=== PATIENT | female | born 1995 | race Caucasian/White ===

== ENCOUNTER 2017-12-28 15:00 | Inpatient (IN) | payer OTHER ==
[2017-12-28] MEDS ORDERED: Misoprostol 100 MCG Tab VAG PRN (16:36)
[2017-12-28] MEDS ORDERED: Sodium Chloride 0.9% 10 ML Syringe FLUSH PRN (16:36)
[2017-12-28] MEDS ORDERED: Ondansetron 4 MG/2 ML SDV IVPUSH PRN (16:36)
[2017-12-28] MEDS ORDERED: Nalbuphine 20 MG/1 ML Amp IVPUSH PRN (16:36)
[2017-12-28] MEDS ORDERED: Oxytocin/Lactated Ringers 10 UNIT/1,000 ML BAG IV SCH ×2 (16:45)
[2017-12-28] MEDS: Lactated Ringers 1,000 ML IV SCH ×3 (17:54→23:40)
--- NOTE | 2017-12-28 20:05 | PCM.LDHP ---
L&D History of Present Illness - General Date of Service: 12/28/17 Admit Problem/Dx: Patient Status Order with Admit Dx/Problem 12/28/17 15:12 Patient Status [ADT] Routine 12/28/17 17:22 Patient Status [ADT] Routine Admission Diagnosis/Problem Admission Diagnosis/Problem Source of Information: Patient History Limitations: Reports: No Limitations - History of Present Illness Introduction:: Patient is a 22 y/o at 38 0/7 wks who presents to L&D after clinic appointment showed 2 mild range BP's. Doing well. Denies headaches, vision changes, RUQ pain. 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 Para: 0 Psychiatric History: Reports: Anxiety, Depression - Past Surgical History HEENT Surgical History: Reports: Oral Surgery Social & Family History - Family History Family Medical History: Noncontributory - Tobacco Use Smoking Status *Q: Never Smoker Second Hand Smoke Exposure: No - Caffeine Use Caffeine Use: Reports: Coffee Other Caffeine Use: 1 every other day - Alcohol Use Alcohol Use History: No - Recreational Drug Use Recreational Drug Use: No H&P Review of Systems - Review of Systems: Review Of Systems: See Below General: Reports: No Symptoms Pulmonary: Reports: No Symptoms Cardiovascular: Reports: No Symptoms Gastrointestinal: Reports: No Symptoms Genitourinary: Reports: No Symptoms Musculoskeletal: Reports: No Symptoms Psychiatric: Reports: No Symptoms Neurological: Reports: No Symptoms L&D Exam - Exam Exam: See Below - Vital Signs Vital Signs: Last Vital Signs Temp 36.8 C 12/28/17 15:12 Pulse 101 H 12/28/17 16:31 Resp 18 12/28/17 15:12 BP 151/93 H 12/28/17 16:31 Pulse Ox 99 12/28/17 15:18 Weight: 77.02 kg - OB Specific Contraction Intensity: Mild Movement: Active Heart Tones: Present Heart Tones per Min: 125 Heart Rate (FHR) Variability: Moderate (6-25 bmp) Presentation: Vertex - [place]aca Score [place]aca Score Cervix Position: Posterior [place] Score Consistency: Soft [place] Score Effacement: 51-70% [place] Score Dilation: 1-2 cm [place] Score 's Station: -2 [place] Score Total: 6 - Exam General: Alert, Oriented, Cooperative Lungs: Clear to Auscultation, Normal Respiratory Effort Cardiovascular: Regular Rate, Regular Rhythm GI/Abdominal Exam: Soft, Non-Tender Genitourinary: Normal external exam Extremities: Normal Inspection Skin: Warm, Dry, Intact - Patient Data Lab Results Last 24 hrs: Laboratory Results - last 24 hr 12/28/17 12/28/17 12/28/17 Range/Units 15:35 15:35 15:35 WBC 14.30 H (3.98-10.04) K/mm3 RBC 4.66 (3.98-5.22) M/mm3 Hgb 12.3 (11.2-15.7) gm/L Hct 36.9 (34.1-44.9) % MCV 79.2 L (79.4-94.8) fl MCH 26.4 (25.6-32.2) pg MCHC 33.3 (32.2-35.5) g/dl RDW Std Deviation 37.0 (36.4-46.3) fL Plt Count 225 (182-369) K/mm3 MPV 9.0 L (9.4-12.3) fl Neut % (Auto) 78.4 H (34.0-71.1) % Lymph % (Auto) 13.4 L (19.3-51.7) % [place] % (Auto) 5.9 (4.7-12.5) % Eos % (Auto) 1.9 (0.7-5.8) Baso % (Auto) 0.1 (0.1-1.2) % Neut # (Auto) 11.21 H (1.56-6.13) K/mm3 Lymph # (Auto) 1.91 (1.18-3.74) K/mm3 [place] # (Auto) 0.85 H (0.24-0.36) K/mm3 Eos # (Auto) 0.27 (0.04-0.36) K/mm3 Baso # (Auto) 0.02 (0.01-0.08) K/mm3 BUN 7 (7-18) mg/dL Creatinine 0.7 (0.55-1.02) mg/dL Est Cr Clr Drug Dosing 118.01 mL/min Estimated GFR (MDRD) > 60 (>60) mL/min Uric Acid 4.8 (2.6-6.0) mg/dL AST 21 (15-37) U/L ALT 21 (14-59) U/L Lactate Dehydrogenase 90 (81-234) U/L Blood Type B NEGATIVE Gel Antibody Screen Positive Result Diagrams: 12/28/17 15:35 12/28/17 15:35 - Problem List (1) 38 weeks gestation of SNOMED Code(s): 91304232 ICD Code: Z3A.38 - 38 WEEKS GESTATION OF Status: Acute Current Visit: Yes (2) Preeclampsia SNOMED Code(s): 651651257 ICD Code: O14.90 - UNSPECIFIED PRE-ECLAMPSIA, UNSPECIFIED TRIMESTER Status : Acute Current Visit: Yes Qualifiers: Trimester: third trimester Qualified Code(s): O14.93 - Unspecified pre- eclampsia, third trimester Problem List Initiated/Reviewed/Updated: Yes Orders Last 24hrs: Active Orders 24 hr Category Date Time Status Patient Status [ADT] Routine ADT 12/28/17 17:22 Active Activity as Tolerated [RC] PFP Care 12/28/17 16:36 Active Bedrest Bathroom Privileges [RC] ASDIRECTED Care 12/28/17 15:12 Active Communication Order [RC] ASDIRECTED Care 12/28/17 16:36 Active Communication Order [RC] ASDIRECTED Care 12/28/17 16:36 Active Communication Order [RC] ASDIRECTED Care 12/28/17 16:36 Active Communication Order [RC] ASDIRECTED Care 12/28/17 16:36 Active Heart Tones [RC] ASDIRECTED Care 12/28/17 16:36 Active Non Stress Test [RC] PER UNIT ROUTINE Care 12/28/17 15:12 Active Notify Provider [RC] ASDIRECTED Care 12/28/17 16:36 Active Notify Provider [RC] PRN Care 12/28/17 16:36 Active Peripheral IV Care [RC] . DIRECTED Care 12/28/17 16:36 Active Up ad Agustina [RC] ASDIRECTED Care 12/28/17 16:37 Active Vaginal Exam [RC] ASDIRECTED Care 12/28/17 16:36 Active Vital Signs [RC] ASDIRECTED Care 12/28/17 16:36 Active Vital Signs [RC] PER UNIT ROUTINE Care 12/28/17 15:12 Active Vital Signs [RC] PER UNIT ROUTINE Care 12/28/17 16:36 Active Regular Diet [DIET] Diet 12/28/17 Breakfast Active Regular Diet [DIET] Diet 12/28/17 Lunch Active ANTIBODY IDENTIFICATION [BBK] Routine Lab 12/28/17 15:35 Results PATIENT RETYPE [BBK] Routine Lab 12/28/17 15:35 Results TYPE AND SCREEN [BBK] Routine Lab 12/28/17 15:35 Results Lactated Ringers [Ringers, Lactated] 1,000 ml Med 12/28/17 16:45 Active IV ASDIRECTED Misoprostol [Cytotec] Med 12/28/17 16:36 Active 25 mcg VAG Q4H PRN Nalbuphine [Nubain] Med 12/28/17 16:36 Active 10 mg IVPUSH Q2H PRN Ondansetron [Zofran] Med 12/28/17 16:36 Active 4 mg IVPUSH Q4H PRN Oxytocin/Lactated Ringers [Pitocin in LR 10 Units/1,000 Med 12/28/17 16:45 Active ML] 10 unit in 1,000 ml IV .CONTINUOUS Oxytocin/Lactated Ringers [Pitocin in LR 10 Units/1,000 Med 12/28/17 16:45 Active ML] 10 unit in 1,000 ml IV TITRATE Sodium Chloride 0.9% [Saline Flush] Med 12/28/17 16:36 Active 10 ml FLUSH ASDIRECTED PRN Electronic Heart Tones Ext w TOCO [WOMSER] Oth 12/28/17 16:36 Ordered Routine Electronic Heart Tones Internal [WOMSER] Per Unit Oth 12/28/17 16:36 Ordered Routine PIH Panel [OM.PC] Stat Oth 12/28/17 15:12 Ordered Peripheral IV Insertion Adult [OM.PC] Routine Oth 12/28/17 16:36 Ordered Resuscitation Status Routine Resus Stat 12/28/17 15:12 Ordered Medication Orders Lactated Ringer's (Ringers, Lactated) 1,000 mls @ 40 mls/hr IV ASDIRECTED ANNALISE Last Admin: 12/28/17 17:54 Dose: 40 mls/hr Oxytocin/Lactated Ringer's (Pitocin In Lr 10 Units/1,000 Ml) 10 unit in 1,000 mls @ 12 mls/hr IV TITRATE ANNALISE; 2 MUNITS/MIN PRN Reason: Protocol Last Titration: 12/28/17 18:51 Dose: 4 munits/min, 24 mls/hr Admin: 12/28/17 17:54 Dose: 2 munits/min, 12 mls/hr Oxytocin/Lactated Ringer's (Pitocin In Lr 10 Units/1,000 Ml) 10 unit in 1,000 mls @ 500 mls/hr IV .CONTINUOUS ANNALISE Misoprostol (Cytotec) 25 mcg VAG Q4H PRN PRN Reason: cervical ripening Nalbuphine HCl (Nubain) 10 mg IVPUSH Q2H PRN PRN Reason: Pain (moderate 4-6) Ondansetron HCl (Zofran) 4 mg IVPUSH Q4H PRN PRN Reason: Nausea/Vomiting Sodium Chloride (Saline Flush) 10 ml FLUSH ASDIRECTED PRN PRN Reason: Keep Vein Open Assessment/Plan Comment:: 22 y/o at 38 0/7 wks who presents for evaluation after clinic appointment showed several mild range BP's. These have persisted on L&D and has also had 1 severe range BP. Will move forward with IOL. * CBC, AST, ALT, Creatinine, T&S * Patient pam q2-4, but overall mild. Will start with flores bulb and pitocin for IOL. Potential AROM when able * GBS negative, no need for antibiotics * Pain management per patient preference * Close monitoring of BP's. Defer magnesium unless signs of severe disease. * Anticipate
--- NOTE | 2017-12-28 20:16 | PCM.PNLD ---
Labor Progress Note - VS & Meds Vital Signs: Last Vital Signs Temp 36.8 C 12/28/17 15:12 Pulse 101 H 12/28/17 16:31 Resp 18 12/28/17 15:12 BP 151/93 H 12/28/17 16:31 Pulse Ox 99 12/28/17 15:18 Active Medications: Current Medications Lactated Ringer's (Ringers, Lactated) 1,000 mls @ 40 mls/hr IV ASDIRECTED ANNALISE Last Admin: 12/28/17 17:54 Dose: 40 mls/hr Oxytocin/Lactated Ringer's (Pitocin In Lr 10 Units/1,000 Ml) 10 unit in 1,000 mls @ 12 mls/hr IV TITRATE ANNALISE; 2 MUNITS/MIN PRN Reason: Protocol Last Titration: 12/28/17 18:51 Dose: 4 munits/min, 24 mls/hr Oxytocin/Lactated Ringer's (Pitocin In Lr 10 Units/1,000 Ml) 10 unit in 1,000 mls @ 500 mls/hr IV .CONTINUOUS ANNALISE Misoprostol (Cytotec) 25 mcg VAG Q4H PRN PRN Reason: cervical ripening Nalbuphine HCl (Nubain) 10 mg IVPUSH Q2H PRN PRN Reason: Pain (moderate 4-6) Ondansetron HCl (Zofran) 4 mg IVPUSH Q4H PRN PRN Reason: Nausea/Vomiting Sodium Chloride (Saline Flush) 10 ml FLUSH ASDIRECTED PRN PRN Reason: Keep Vein Open - Uterine Contractions Uterine Monitoring Mode: External [place] Contraction Intensity: Mild to Moderate Uterine Resting Tone: Soft - Monitoring Monitor Mode: External Ultrasound Heart Rate (FHR) Baseline: 125 Heart Rate (FHR) Variability: Moderate (6-25 bmp) Accelerations: Present, 15x15 Decelerations: None - Labor Progress (Free Text) Labor Progress: Deluna bulb out with gentle traction. Patient on 4 of pitocin. Continue present management. BP's recently more normal with rare mild range.
[2017-12-28] MEDS ORDERED: Bupivacaine 0.25% 10 ML SDV ONE (22:22)
[2017-12-28] MEDS ORDERED: ePHEDrine 50 MG/ML SDV IVPUSH PRN (23:32)
[2017-12-28] MEDS ORDERED: diphenhydrAMINE 50 MG/ML SDV IVPUSH PRN (23:32)
[2017-12-28] MEDS ORDERED: fentaNYL 100 MCG/2 ML SDV EPIDUR PRN (23:32)
[2017-12-28] MEDS ORDERED: fentaNYL 100 MCG/2 ML SDV ONE (23:34)
--- NOTE | 2017-12-28 23:40 | PCM.PREANE ---
Preanesthetic Assessment - Anesthesia/Transfusion/Family Hx Anesthesia History: Prior Anesthesia Without Reaction Family History of Anesthesia Reaction: No Transfusion History: No Prior Transfusion(s) - Review of Systems General: No Symptoms Pulmonary: No Symptoms, Wheezing (couple days ago- allergy related) Cardiovascular: No Symptoms Gastrointestinal: No Symptoms Neurological: No Symptoms Other: Reports: Depression, Anxiety - Physical Assessment Pulse: 101 O2 Sat by Pulse Oximetry: 99 Respiratory Rate: 18 Blood Pressure: 151/93 Vital Signs: Last Vital Signs Temp 98.2 F 12/28/17 15:12 Pulse 101 H 12/28/17 16:31 Resp 18 12/28/17 15:12 BP 151/93 H 12/28/17 16:31 Pulse Ox 99 12/28/17 15:18 Height: 5 ft 6 in Weight: 77.02 kg ASA Class: 2 Mental Status: Alert & Oriented x3 Airway Class: Mallampati = 1 Dentition: Reports: Normal Dentition Thyro-Mental Finger Breadths: 3 Mouth Opening Finger Breadths: 3 ROM/Head Extension: Full Lungs: Clear to Auscultation, Normal Respiratory Effort Cardiovascular: Regular Rate, Regular Rhythm - Lab Values: Laboratory Last Values WBC 14.30 K/mm3 (3.98-10.04) H 12/28/17 15:35 RBC 4.66 M/mm3 (3.98-5.22) 12/28/17 15:35 Hgb 12.3 gm/L (11.2-15.7) 12/28/17 15:35 Hct 36.9 % (34.1-44.9) 12/28/17 15:35 MCV 79.2 fl (79.4-94.8) L 12/28/17 15:35 MCH 26.4 pg (25.6-32.2) 12/28/17 15:35 MCHC 33.3 g/dl (32.2-35.5) 12/28/17 15:35 RDW Std Deviation 37.0 fL (36.4-46.3) 12/28/17 15:35 Plt Count 225 K/mm3 (182-369) 12/28/17 15:35 MPV 9.0 fl (9.4-12.3) L 12/28/17 15:35 Neut % (Auto) 78.4 % (34.0-71.1) H 12/28/17 15:35 Lymph % (Auto) 13.4 % (19.3-51.7) L 12/28/17 15:35 [place] % (Auto) 5.9 % (4.7-12.5) 12/28/17 15:35 Eos % (Auto) 1.9 (0.7-5.8) 12/28/17 15:35 Baso % (Auto) 0.1 % (0.1-1.2) 12/28/17 15:35 Neut # (Auto) 11.21 K/mm3 (1.56-6.13) H 12/28/17 15:35 Lymph # (Auto) 1.91 K/mm3 (1.18-3.74) 12/28/17 15:35 [place] # (Auto) 0.85 K/mm3 (0.24-0.36) H 12/28/17 15:35 Eos # (Auto) 0.27 K/mm3 (0.04-0.36) 12/28/17 15:35 Baso # (Auto) 0.02 K/mm3 (0.01-0.08) 12/28/17 15:35 BUN 7 mg/dL (7-18) 12/28/17 15:35 Creatinine 0.7 mg/dL (0.55-1.02) 12/28/17 15:35 Est Cr Clr Drug Dosing 118.01 mL/min 12/28/17 15:35 Estimated GFR (MDRD) > 60 mL/min (>60) 12/28/17 15:35 Uric Acid 4.8 mg/dL (2.6-6.0) 12/28/17 15:35 AST 21 U/L (15-37) 12/28/17 15:35 ALT 21 U/L (14-59) 12/28/17 15:35 Lactate Dehydrogenase 90 U/L (81-234) 12/28/17 15:35 Blood Type B NEGATIVE 12/28/17 15:35 Gel Antibody Screen Positive 12/28/17 15:35 - Allergies Allergies/Adverse Reactions: Allergies Allergy/AdvReac Type Severity Reaction Status Date / Time No Known Allergies Allergy Verified 12/28/17 15:14 - Blood Blood Available: No - Acknowledgements Anesthesia Type Planned: Epidural Pt an Appropriate Candidate for the Planned Anesthesia: Yes Alternatives and Risks of Anesthesia Discussed w Pt/Guardian: Yes Pt/Guardian Understands and Agrees with Anesthesia Plan: Yes PreAnesthesia Questionnaire Cardiovascular History: Reports: None Respiratory History: Reports: None 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: 0 Psychiatric History: Reports: Anxiety, Depression - Past Surgical History HEENT Surgical History: Reports: Oral Surgery - SUBSTANCE USE Smoking Status *Q: Never Smoker Tobacco Use Within Last Twelve Months: No Second Hand Smoke Exposure: Yes Days Per Week of Alcohol Use: 0 Recreational Drug Use History: No - HOME MEDS Home Medications: Home Meds Pnv No.122/Iron/Folic Acid [ Multi Tablet] 1 each PO DAILY 12/28/17 [ History] - CURRENT (IN HOUSE) MEDS Current Meds: Current Medications Diphenhydramine HCl (Benadryl) 25 mg IVPUSH Q6H PRN PRN Reason: pruritis Ephedrine Sulfate (Ephedrine Sulfate) 5 mg IVPUSH ASDIRECTED PRN PRN Reason: Hypotension Fentanyl (Sublimaze) 100 mcg EPIDUR Q3H PRN PRN Reason: Pain Fentanyl/Bupivacaine HCl (Fentanyl/Bupivacaine/Ns 2 Mcg-0.125% 100 Ml) 100 ml EPIDUR ASDIRECTED ANNALISE Lactated Ringer's (Ringers, Lactated) 1,000 mls @ 40 mls/hr IV ASDIRECTED ANNALISE Last Admin: 12/28/17 20:48 Dose: 40 mls/hr Oxytocin/Lactated Ringer's (Pitocin In Lr 10 Units/1,000 Ml) 10 unit in 1,000 mls @ 12 mls/hr IV TITRATE ANNALISE; 2 MUNITS/MIN PRN Reason: Protocol Last Titration: 12/28/17 18:51 Dose: 4 munits/min, 24 mls/hr Oxytocin/Lactated Ringer's (Pitocin In Lr 10 Units/1,000 Ml) 10 unit in 1,000 mls @ 500 mls/hr IV .CONTINUOUS ANNALISE Misoprostol (Cytotec) 25 mcg VAG Q4H PRN PRN Reason: cervical ripening Nalbuphine HCl (Nubain) 10 mg IVPUSH Q2H PRN PRN Reason: Pain (moderate 4-6) Ondansetron HCl (Zofran) 4 mg IVPUSH Q4H PRN PRN Reason: Nausea/Vomiting Sodium Chloride (Saline Flush) 10 ml FLUSH ASDIRECTED PRN PRN Reason: Keep Vein Open
[2017-12-28] MEDS: Bupivacaine/fentaNYL/NS 100 ML Bag EPIDUR SCH (23:41)
--- NOTE | 2017-12-29 02:31 | PCM.PNLD ---
Labor Progress Note - VS & Meds Vital Signs: Last Vital Signs Temp 36.8 C 12/28/17 15:12 Pulse 101 H 12/28/17 23:40 Resp 18 12/28/17 23:40 BP 151/93 H 12/28/17 23:40 Pulse Ox 99 12/28/17 23:40 Active Medications: Current Medications Diphenhydramine HCl (Benadryl) 25 mg IVPUSH Q6H PRN PRN Reason: pruritis Ephedrine Sulfate (Ephedrine Sulfate) 5 mg IVPUSH ASDIRECTED PRN PRN Reason: Hypotension Fentanyl (Sublimaze) 100 mcg EPIDUR Q3H PRN PRN Reason: Pain Fentanyl/Bupivacaine HCl (Fentanyl/Bupivacaine/Ns 2 Mcg-0.125% 100 Ml) 100 ml EPIDUR ASDIRECTED ANNALISE Last Admin: 12/28/17 23:41 Dose: 100 ml Lactated Ringer's (Ringers, Lactated) 1,000 mls @ 40 mls/hr IV ASDIRECTED ANNALISE Last Admin: 12/28/17 23:40 Dose: 40 mls/hr Oxytocin/Lactated Ringer's (Pitocin In Lr 10 Units/1,000 Ml) 10 unit in 1,000 mls @ 12 mls/hr IV TITRATE ANNALISE; 2 MUNITS/MIN PRN Reason: Protocol Last Titration: 12/29/17 01:43 Dose: 4 munits/min, 24 mls/hr Oxytocin/Lactated Ringer's (Pitocin In Lr 10 Units/1,000 Ml) 10 unit in 1,000 mls @ 500 mls/hr IV .CONTINUOUS ANNALISE Misoprostol (Cytotec) 25 mcg VAG Q4H PRN PRN Reason: cervical ripening Nalbuphine HCl (Nubain) 10 mg IVPUSH Q2H PRN PRN Reason: Pain (moderate 4-6) Ondansetron HCl (Zofran) 4 mg IVPUSH Q4H PRN PRN Reason: Nausea/Vomiting Sodium Chloride (Saline Flush) 10 ml FLUSH ASDIRECTED PRN PRN Reason: Keep Vein Open Discontinued Medications Fentanyl (Sublimaze) Confirm Administered Dose 100 mcg .ROUTE .STK-MED ONE Stop: 12/28/17 23:35 Last Admin: 12/28/17 23:41 Dose: 100 mcg - Uterine Contractions Uterine Monitoring Mode: External [place] Contraction Intensity: Moderate to Strong Uterine Resting Tone: Soft - Monitoring Monitor Mode: External Ultrasound Heart Rate (FHR) Baseline: 130 Heart Rate (FHR) Variability: Moderate (6-25 bmp) Accelerations: Present, 15x15 Decelerations: Late (Intermittent - resolved with position changes ), Variable Strip Review: Category II - Vaginal Exam Dilation (cm): 3-4 Effacement (Percent): 70 Station: -2 Cervical Position: Midposition - Labor Progress (Free Text) Labor Progress: Patient doing well. Received her epidural around midnight. Pitocin up to a high of 6, but then with some periods of lates that had to be decreased back down to 4. Still now with rare late decelerations. Opted to stop pitocin and AROM in stead. Release of moderate of clear fluid. Continue present management
[2017-12-29] MEDS: Lactated Ringers 1,000 ML IV SCH (06:57)
[2017-12-29] MEDS: Bupivacaine/fentaNYL/NS 100 ML Bag EPIDUR SCH (08:24)
--- NOTE | 2017-12-29 15:57 | PCM.DEL ---
L & D Note - General Info Date of Service: 12/29/17 - Delivery Note Labor: Induced by ARM, Induced by Oxytocin Cervical Ripening Method: Balloon Device Delivery Outcome: Livebirth Infant Delivery Method: Spontaneous Vaginal Delivery-Single Infant Delivery Mode: Vacuum Extraction (Failed) Presentation: Left Occiput Anterior (YASMIN) Nuchal Cord: Present Anesthesia Type: Epidural Amniotic Fluid Description: Clear Episiotomy Type: None Laceration: 1st Degree Suture type: Vicryl Suture size: 2-0 Placenta: Intact, Spontaneous Cord: 3 Vessels Estimated Blood Loss: 350 Resuscitation Needed: Yes [place]: Suctioned, Bulb Syringe, Stimulated, Warmed, [place] Used Delivery Comments (Free Text/Narrative):: Patient found to be complete and began pushing. At approximately 2 hours of pushing she became very exhausted and did not feel that she could continue. Was counseled on options and elected for trial of VAVD. Sterile vaginal exam complete/complete/+3 station. head in YASMIN presentation. Maternal pushing effort was good and the pelvis was felt to be adequate for an instrument assisted delivery. Given exhaustion the decision was made to proceed with vacuum assisted vaginal delivery. The mushroom cup was placed without difficulty with care to avoid the vaginal side amin. First application at 2245. After 2 contractions there was one pop off. Vacuum applied again and after 2 contractions there was another pop off. This was at 2252. At this time head resting on perineum continuously seen the labia. Given baby moved down in the pelvis well and tracing otherwise she was encouraged to continue pushing. Delivery did occur at 1529 from an YASMIN presentation. Nuchal cord present, but not reduced. With gentle downward tractions the shoulders and body delivered. Cord clamped and cut. Baby handed to warmer. Section of cord then collected for cord gas. Placenta allowed time to separate and expelled intact. Cord blood then collected from placenta. - Patient Data Vitals - Most Recent: Last Vital Signs Temp 36.8 C 12/28/17 15:12 Pulse 101 H 12/28/17 23:40 Resp 18 12/28/17 23:40 BP 151/93 H 12/28/17 23:40 Pulse Ox 99 12/28/17 23:40 Weight - Most Recent: 77.02 kg Lab Results Last 24 Hours: Laboratory Results - last 24 hr 12/28/17 12/28/1718 Range/Units 15:35 15:35 15:48 Cord ABG pH 7.29 (7.22-7.32) Cord ABG pCO2 38.3 L (42-58) Cord ABG pO2 34 H (12-24) Cord ABG HCO3 17.9 L (24-26) Cord ABG Base Excess -7.8 L (-5.5-0.1) Cord VBG pH 7.32 (7.28-7.40) Cord VBG pCO2 34.4 (32.8-38.6) Cord VBG HCO3 17.4 L (19-24) Cord VBG Base Excess -7.3 L (-4.4-0.4) BUN 7 (7-18) mg/dL Creatinine 0.7 (0.55-1.02) mg/dL Est Cr Clr Drug Dosing 118.01 mL/min Estimated GFR (MDRD) > 60 (>60) mL/min Uric Acid 4.8 (2.6-6.0) mg/dL AST 21 (15-37) U/L ALT 21 (14-59) U/L Lactate Dehydrogenase 90 (81-234) U/L Blood Type B NEGATIVE Gel Antibody Screen Positive Med Orders - Current: Current Medications Diphenhydramine HCl (Benadryl) 25 mg IVPUSH Q6H PRN PRN Reason: pruritis Ephedrine Sulfate (Ephedrine Sulfate) 5 mg IVPUSH ASDIRECTED PRN PRN Reason: Hypotension Fentanyl (Sublimaze) 100 mcg EPIDUR Q3H PRN PRN Reason: Pain Fentanyl/Bupivacaine HCl (Fentanyl/Bupivacaine/Ns 2 Mcg-0.125% 100 Ml) 100 ml EPIDUR ASDIRECTED ANNALISE Last Admin: 12/29/17 08:24 Dose: 100 ml Lactated Ringer's (Ringers, Lactated) 1,000 mls @ 40 mls/hr IV ASDIRECTED ANNALISE Last Admin: 12/29/17 06:57 Dose: 40 mls/hr Oxytocin/Lactated Ringer's (Pitocin In Lr 10 Units/1,000 Ml) 10 unit in 1,000 mls @ 12 mls/hr IV TITRATE ANNALISE; 2 MUNITS/MIN PRN Reason: Protocol Last Titration: 12/29/17 08:25 Dose: 6 munits/min, 36 mls/hr Oxytocin/Lactated Ringer's (Pitocin In Lr 10 Units/1,000 Ml) 10 unit in 1,000 mls @ 500 mls/hr IV .CONTINUOUS ANNALISE Misoprostol (Cytotec) 25 mcg VAG Q4H PRN PRN Reason: cervical ripening Nalbuphine HCl (Nubain) 10 mg IVPUSH Q2H PRN PRN Reason: Pain (moderate 4-6) Ondansetron HCl (Zofran) 4 mg IVPUSH Q4H PRN PRN Reason: Nausea/Vomiting Sodium Chloride (Saline Flush) 10 ml FLUSH ASDIRECTED PRN PRN Reason: Keep Vein Open Discontinued Medications Fentanyl (Sublimaze) Confirm Administered Dose 100 mcg .ROUTE .STK-MED ONE Stop: 12/28/17 23:35 Last Admin: 12/28/17 23:41 Dose: 100 mcg - Problem List & Annotations (1) 38 weeks gestation of SNOMED Code(s): 97497601 Code(s): Z3A.38 - 38 WEEKS GESTATION OF Status: Acute Current Visit: Yes (2) Preeclampsia SNOMED Code(s): 277808497 Code(s): O14.90 - UNSPECIFIED PRE-ECLAMPSIA, UNSPECIFIED TRIMESTER Status: Acute Current Visit: Yes Qualifiers: Trimester: third trimester Qualified Code(s): O14.93 - Unspecified pre- eclampsia, third trimester (3) Status post vacuum-assisted vaginal delivery SNOMED Code(s): 610815264 Code(s): Z87.42 - PERSONAL HISTORY OF OTH DISEASES OF THE FEMALE GENITAL TRACT Status: Acute Current Visit: Yes - Problem List Review Problem List Initiated/Reviewed/Updated: Yes - My Orders Last 24 Hours: My Active Orders 12/28/17 15:12 PIH Panel [OM.PC] Stat Resuscitation Status Routine 12/28/17 15:35 ANTIBODY IDENTIFICATION [BBK] Routine PATIENT RETYPE [BBK] Routine TYPE AND SCREEN [BBK] Routine 12/28/17 16:36 Communication Order [RC] ASDIRECTED Communication Order [RC] ASDIRECTED Communication Order [RC] ASDIRECTED Heart Tones [RC] ASDIRECTED Notify Provider [RC] ASDIRECTED Notify Provider [RC] PRN Peripheral IV Care [RC] . DIRECTED Misoprostol [Cytotec] 25 mcg VAG Q4H PRN Nalbuphine [Nubain] 10 mg IVPUSH Q2H PRN Ondansetron [Zofran] 4 mg IVPUSH Q4H PRN Sodium Chloride 0.9% [Saline Flush] 10 ml FLUSH ASDIRECTED PRN Electronic Heart Tones Ext w TOCO [WOMSER] Routine Electronic Heart Tones Internal [WOMSER] Per Unit Routine Peripheral IV Insertion Adult [OM.PC] Routine 12/28/17 16:45 Lactated Ringers [Ringers, Lactated] 1,000 ml IV ASDIRECTED Oxytocin/Lactated Ringers [Pitocin in LR 10 Units/1,000 ML] 10 unit in 1,000 ml IV .CONTINUOUS Oxytocin/Lactated Ringers [Pitocin in LR 10 Units/1,000 ML] 10 unit in 1,000 ml IV TITRATE 12/28/17 17:22 Patient Status [ADT] Routine 12/29/17 15:48 BLOOD GAS ARTERIAL UMBILICAL [BG] Routine BLOOD GAS VENOUS UMBILICAL [BG] Routine - Assessment Assessment:: 22 y/o G1 now P1001 PPD#0 from at 38 0/7 wks - Plan Plan:: / attempted VAVD * Routine cares * Encourage breast feeding * Close monitoring of BP's. * Discharge home in 1-2 days
[2017-12-29] MEDS ORDERED: Docusate Sodium 100 MG Cap PO PRN (16:48)
[2017-12-29] MEDS ORDERED: Benzocaine/Menthol 20%-0.5% Spray 56 GM Canister TOP PRN (16:48)
[2017-12-29] MEDS ORDERED: Lanolin 100% Cream 7 GM Tube TOP PRN (16:48)
[2017-12-29] MEDS ORDERED: Acetaminophen 325 MG Tab PO PRN (16:48)
[2017-12-29] MEDS ORDERED: Witch Hazel Medicated Pads 100/Jar TOP PRN (16:48)
[2017-12-29] MEDS: Ibuprofen 600 MG Tab PO PRN (17:10)
[2017-12-30] MEDS: Ibuprofen 600 MG Tab PO PRN (01:26)
--- NOTE | 2017-12-30 07:02 | PCM.PNPP ---
- General Info Date of Service: 12/30/17 Functional Status: Reports: Pain Controlled, Tolerating Diet, Ambulating, Urinating - Review of Systems General: Reports: No Symptoms Pulmonary: Reports: No Symptoms Cardiovascular: Reports: No Symptoms Gastrointestinal: Reports: No Symptoms Genitourinary: Reports: No Symptoms Musculoskeletal: Reports: No Symptoms - Patient Data Vital Signs - Most Recent: Last Vital Signs Temp 36.6 C 12/29/17 21:16 Pulse 86 12/29/17 21:16 Resp 16 12/29/17 21:16 BP 119/77 12/29/17 21:16 Pulse Ox 98 12/29/17 21:16 Weight - Most Recent: 77.02 kg I&O - Last 24 Hours: Intake & Output 12/29/17 12/30/17 12/30/17 22:59 06:59 14:59 Intake Total 2 Balance 2 Lab Results - Last 24 Hours: Laboratory Results - last 24 hr 12/29/17 12/29/17 Range/Units 15:48 19:24 Cord ABG pH 7.29 (7.22-7.32) Cord ABG pCO2 38.3 L (42-58) Cord ABG pO2 34 H (12-24) Cord ABG HCO3 17.9 L (24-26) Cord ABG Base Excess -7.8 L (-5.5-0.1) Cord VBG pH 7.32 (7.28-7.40) Cord VBG pCO2 34.4 (32.8-38.6) Cord VBG HCO3 17.4 L (19-24) Cord VBG Base Excess -7.3 L (-4.4-0.4) Blood Type B NEGATIVE Gel Antibody Screen Positive Screen 3 ros/5 flds - neg RhIG Candidate? Yes Rhogam Indicated Yes, baby rh pos H Med Orders - Current: Current Medications Acetaminophen (Tylenol) 650 mg PO Q4H PRN PRN Reason: mild pain or fever Benzocaine/Menthol (Dermoplast Pain Relief Delaplaine) 0 gm TOP ASDIRECTED PRN PRN Reason: Perineal Comfort Measure Last Admin: 12/29/17 17:11 Dose: 1 can Docusate Sodium (Colace) 100 mg PO BID PRN PRN Reason: Constipation Last Admin: 12/29/17 17:11 Dose: 100 mg Emollient Ointment (Lansinoh Hpa) 0 gm TOP ASDIRECTED PRN PRN Reason: Sore Nipples Last Admin: 12/29/17 17:11 Dose: 1 tube Ibuprofen (Motrin) 600 mg PO Q6H PRN PRN Reason: Mild pain or fever Last Admin: 12/30/17 01:26 Dose: 600 mg Witch Eileen (Tucks) 1 pad TOP ASDIRECTED PRN PRN Reason: Hemorrhoid pain Last Admin: 12/29/17 17:11 Dose: 1 container Discontinued Medications Diphenhydramine HCl (Benadryl) 25 mg IVPUSH Q6H PRN PRN Reason: pruritis Ephedrine Sulfate (Ephedrine Sulfate) 5 mg IVPUSH ASDIRECTED PRN PRN Reason: Hypotension Fentanyl (Sublimaze) 100 mcg EPIDUR Q3H PRN PRN Reason: Pain Fentanyl (Sublimaze) Confirm Administered Dose 100 mcg .ROUTE .[facility] ONE Stop: 12/28/17 23:35 Last Admin: 12/28/17 23:41 Dose: 100 mcg Fentanyl/Bupivacaine HCl (Fentanyl/Bupivacaine/Ns 2 Mcg-0.125% 100 Ml) 100 ml EPIDUR ASDIRECTED ANNALISE Last Admin: 12/29/17 08:24 Dose: 100 ml Lactated Ringer's (Ringers, Lactated) 1,000 mls @ 40 mls/hr IV ASDIRECTED ANNALISE Last Admin: 12/29/17 06:57 Dose: 40 mls/hr Oxytocin/Lactated Ringer's (Pitocin In Lr 10 Units/1,000 Ml) 10 unit in 1,000 mls @ 12 mls/hr IV TITRATE ANNALISE; 2 MUNITS/MIN PRN Reason: Protocol Last Titration: 12/29/17 15:30 Dose: 999 mls/hr Oxytocin/Lactated Ringer's (Pitocin In Lr 10 Units/1,000 Ml) 10 unit in 1,000 mls @ 500 mls/hr IV .CONTINUOUS ANNALISE Last Admin: 12/29/17 16:05 Dose: 999 mls/hr Misoprostol (Cytotec) 25 mcg VAG Q4H PRN PRN Reason: cervical ripening Nalbuphine HCl (Nubain) 10 mg IVPUSH Q2H PRN PRN Reason: Pain (moderate 4-6) Ondansetron HCl (Zofran) 4 mg IVPUSH Q4H PRN PRN Reason: Nausea/Vomiting Sodium Chloride (Saline Flush) 10 ml FLUSH ASDIRECTED PRN PRN Reason: Keep Vein Open - Interaction Infant Disposition, : in Room with Family Interaction: Holding Infant Infant Feeding: Attempted ; Nursed Fair/Poor Support Person: - Recovery Exam Fundal Tone: Firm Fundal Level: 2 Fingerbreadths Below Umbilicus Fundal Placement: Midline Lochia Amount: Small Lochia Color: Rubra/Red Perineum Description: Other (see below) Other Perinuem Description: 1st degree with repair Episiotomy/Laceration: Approximated Bladder Status: Voiding - Exam General: Alert, Oriented, Cooperative GI/Abdominal Exam: Soft, Non-Tender Extremities: Normal Inspection Skin: Warm, Dry, Intact - Problem List & Annotations (1) 38 weeks gestation of SNOMED Code(s): 85274973 Code(s): Z3A.38 - 38 WEEKS GESTATION OF Status: Acute Current Visit: Yes (2) Preeclampsia SNOMED Code(s): 108985213 Code(s): O14.90 - UNSPECIFIED PRE-ECLAMPSIA, UNSPECIFIED TRIMESTER Status: Acute Current Visit: Yes Qualifiers: Trimester: third trimester Qualified Code(s): O14.93 - Unspecified pre- eclampsia, third trimester (3) Status post vacuum-assisted vaginal delivery SNOMED Code(s): 815835262 Code(s): Z87.42 - PERSONAL HISTORY OF OTH DISEASES OF THE FEMALE GENITAL TRACT Status: Acute Current Visit: Yes - Problem List Review Problem List Initiated/Reviewed/Updated: Yes - My Orders Last 24 Hours: My Active Orders 12/29/17 15:48 BLOOD GAS ARTERIAL UMBILICAL [BG] Routine BLOOD GAS VENOUS UMBILICAL [BG] Routine 12/29/17 16:48 Activity as Tolerated [RC] PER UNIT ROUTINE Vital Signs [RC] 04,12,20 Acetaminophen [Tylenol] 650 mg PO Q4H PRN Benzocaine/Menthol [Dermoplast Pain Relief Delaplaine] See Dose Instructions TOP ASDIRECTED PRN Docusate Sodium [Colace] 100 mg PO BID PRN Ibuprofen [Motrin] 600 mg PO Q6H PRN Lanolin [Lansinoh HPA] See Dose Instructions TOP ASDIRECTED PRN Witch Eileen [Tucks] 1 pad TOP ASDIRECTED PRN Assess Lochia [WOMSER] Per Unit Routine Assess Uterine Involution [WOMSER] Per Unit Routine Breast Pump [WOMSER] Per Unit Routine Heat Therapy [OM.PC] PRN Ice Therapy [OM.PC] Per Unit Routine Perineal Care [OM.PC] Per Unit Routine Peripheral IV Discontinue [OM.PC] Routine Sitz Bath [OM.PC] Per Unit Routine 12/29/17 Dinner Regular Diet [DIET] 12/30/17 16:48 Heat Therapy [OM.PC] PRN - Assessment Assessment:: 22 y/o G1 now P1001 PPD#1 from at 38 0/7 wks - Plan Plan:: / attempted VAVD * Routine cares * Encourage breast feeding * Close monitoring of BP's. Have been normal to mild range overnight. Will plan BP check in office in 2 weeks * Discharge home tomorrow
--- NOTE | 2017-12-30 14:42 | PCM48HPAN ---
Post Anesthesia Note - EVALUATION WITHIN 48HRS OF ANESTHETIC Vital Signs in Normal Range: Yes Patient Participated in Evaluation: Yes Respiratory Function Stable: Yes Airway Patent: Yes Cardiovascular Function Stable: Yes Hydration Status Stable: Yes Pain Control Satisfactory: Yes Nausea and Vomiting Control Satisfactory: Yes Mental Status Recovered: Yes Pulse Rate: 93 Resp Rate: 15 Temperature: 36.7 C Blood Pressure: 117/74 - COMMENTS/OBSERVATIONS Free Text/Narrative:: Patient was happy with her epidural, experiencing some bruised feeling in her back, but understands this is normal. Pt ambulating and caring for infant.
--- NOTE | 2017-12-31 09:52 | PCM.DCSUM1 ---
Discharge Summary - Hospital Course Free Text/Narrative:: [facility] LIVE L/D Delivery Note Patient Name: ALFREDO FARIAS Date of : 89 Patient Status: Inpatient Attending Provider: Agatha Lee Date: 12/29/17 15:57 Initialization Date: 12/29/17 15:57 L & D Note - General Info Date of Service: 12/29/17 - Delivery Note Labor: Induced by ARM, Induced by Oxytocin Cervical Ripening Method: Balloon Device Delivery Outcome: Livebirth Delivery Method: Spontaneous Vaginal Delivery-Single Infant Delivery Mode: Vacuum Extraction (Failed) Presentation: Left Occiput Anterior (YASMIN) Nuchal Cord: Present Anesthesia Type: Epidural Amniotic Fluid Description: Clear Episiotomy Type: None Laceration: 1st Degree Suture type: Vicryl Suture size: 2-0 Placenta: Intact, Spontaneous Cord: 3 Vessels Estimated Blood Loss: 350 Resuscitation Needed: Yes : Suctioned, Bulb Syringe, Stimulated, Warmed, Doland Used Delivery Comments (Free Text/Narrative):: Patient found to be complete and began pushing. At approximately 2 hours of pushing she became very exhausted and did not feel that she could continue. Was counseled on options and elected for trial of VAVD. Sterile vaginal exam complete/complete/+3 station. head in YASMIN presentation. Maternal pushing effort was good and the pelvis was felt to be adequate for an instrument assisted delivery. Given exhaustion the decision was made to proceed with vacuum assisted vaginal delivery. The mushroom cup was placed without difficulty with care to avoid the vaginal side amin. First application at 2245. After 2 contractions there was one pop off. Vacuum applied again and after 2 contractions there was another pop off. This was at 2252. At this time head resting on perineum continuously seen the labia. Given baby moved down in the pelvis well and tracing otherwise she was encouraged to continue pushing. Delivery did occur at 1529 from an YASMIN presentation. Nuchal cord present, but not reduced. With gentle downward tractions the shoulders and body delivered. Cord clamped and cut. Baby handed to warmer. Section of cord then collected for cord gas. Placenta allowed time to separate and expelled intact. Cord blood then collected from placenta. - Patient Data Vitals - Most Recent: Last Vital Signs Temp 36.8 C 12/28/17 15:12 Pulse 101 H 12/28/17 23:40 Resp 18 12/28/17 23:40 BP 151/93 H 12/28/17 23:40 Pulse Ox 99 12/28/17 23:40 Weight - Most Recent: 77.02 kg Lab Results Last 24 Hours: Laboratory Results - last 24 hr 12/28/17 12/28/17 12/29/17 Range/Units 15:35 15:35 15:48 Cord ABG pH 7.29 (7.22-7.32) Cord ABG pCO2 38.3 L (42-58) Cord ABG pO2 34 H (12-24) Cord ABG HCO3 17.9 L (24-26) Cord ABG Base Excess -7.8 L (-5.5-0.1) Cord VBG pH 7.32 (7.28-7.40) Cord VBG pCO2 34.4 (32.8-38.6) Cord VBG HCO3 17.4 L (19-24) Cord VBG Base Excess -7.3 L (-4.4-0.4) BUN 7 (7-18) mg/dL Creatinine 0.7 (0.55-1.02) mg/dL Est Cr Clr Drug Dosing 118.01 mL/min Estimated GFR (MDRD) > 60 (>60) mL/min Uric Acid 4.8 (2.6-6.0) mg/dL AST 21 (15-37) U/L ALT 21 (14-59) U/L Lactate Dehydrogenase 90 (81-234) U/L Blood Type B NEGATIVE Gel Antibody Screen Positive Med Orders - Current: Current Medications Diphenhydramine HCl (Benadryl) 25 mg IVPUSH Q6H PRN PRN Reason: pruritis Ephedrine Sulfate (Ephedrine Sulfate) 5 mg IVPUSH ASDIRECTED PRN PRN Reason: Hypotension Fentanyl (Sublimaze) 100 mcg EPIDUR Q3H PRN PRN Reason: Pain Fentanyl/Bupivacaine HCl (Fentanyl/Bupivacaine/Ns 2 Mcg-0.125% 100 Ml) 100 ml EPIDUR ASDIRECTED ANNALISE Last Admin: 12/29/17 08:24 Dose: 100 ml Lactated Ringer's (Ringers, Lactated) 1,000 mls @ 40 mls/hr IV ASDIRECTED ANNALISE Last Admin: 12/29/17 06:57 Dose: 40 mls/hr Oxytocin/Lactated Ringer's (Pitocin In Lr 10 Units/1,000 Ml) 10 unit in 1,000 mls @ 12 mls/hr IV TITRATE ANNALISE; 2 MUNITS/MIN PRN Reason: Protocol Last Titration: 12/29/17 08:25 Dose: 6 munits/min, 36 mls/hr Oxytocin/Lactated Ringer's (Pitocin In Lr 10 Units/1,000 Ml) 10 unit in 1,000 mls @ 500 mls/hr IV .CONTINUOUS ANNALISE Misoprostol (Cytotec) 25 mcg VAG Q4H PRN PRN Reason: cervical ripening Nalbuphine HCl (Nubain) 10 mg IVPUSH Q2H PRN PRN Reason: Pain (moderate 4-6) Ondansetron HCl (Zofran) 4 mg IVPUSH Q4H PRN PRN Reason: Nausea/Vomiting Sodium Chloride (Saline Flush) 10 ml FLUSH ASDIRECTED PRN PRN Reason: Keep Vein Open Discontinued Medications Fentanyl (Sublimaze) Confirm Administered Dose 100 mcg .ROUTE .STK-MED ONE Stop: 12/28/17 23:35 Last Admin: 12/28/17 23:41 Dose: 100 mcg - Problem List & Annotations (1) 38 weeks gestation of SNOMED Code(s): 12684948 Code(s): Z3A.38 - 38 WEEKS GESTATION OF Status: Acute Current Visit: Yes (2) Preeclampsia SNOMED Code(s): 698653371 Code(s): O14.90 - UNSPECIFIED PRE-ECLAMPSIA, UNSPECIFIED TRIMESTER Status: Acute Current Visit: Yes Qualifiers: Trimester: third trimester Qualified Code(s): O14.93 - Unspecified pre- eclampsia, third trimester (3) Status post vacuum-assisted vaginal delivery SNOMED Code(s): 098391377 Code(s): Z87.42 - PERSONAL HISTORY OF OTH DISEASES OF THE FEMALE GENITAL TRACT Status: Acute Current Visit: Yes - Problem List Review Problem List Initiated/Reviewed/Updated: Yes - My Orders Last 24 Hours: My Active Orders 12/28/17 15:12 PIH Panel [OMEliudPC] Stat Resuscitation Status Routine 12/28/17 15:35 ANTIBODY IDENTIFICATION [BBK] Routine PATIENT RETYPE [BBK] Routine TYPE AND SCREEN [BBK] Routine 12/28/17 16:36 Communication Order [RC] ASDIRECTED Communication Order [RC] ASDIRECTED Communication Order [RC] ASDIRECTED Heart Tones [RC] ASDIRECTED Notify Provider [RC] ASDIRECTED Notify Provider [RC] PRN Peripheral IV Care [RC] . DIRECTED Misoprostol [Cytotec] 25 mcg VAG Q4H PRN Nalbuphine [Nubain] 10 mg IVPUSH Q2H PRN Ondansetron [Zofran] 4 mg IVPUSH Q4H PRN Sodium Chloride 0.9% [Saline Flush] 10 ml FLUSH ASDIRECTED PRN Electronic Heart Tones Ext w TOCO [WOMSER] Routine Electronic Heart Tones Internal [WOMSER] Per Unit Routine Peripheral IV Insertion Adult [OM.PC] Routine 12/28/17 16:45 Lactated Ringers [Ringers, Lactated] 1,000 ml IV ASDIRECTED Oxytocin/Lactated Ringers [Pitocin in LR 10 Units/1,000 ML] 10 unit in 1,000 ml IV .CONTINUOUS Oxytocin/Lactated Ringers [Pitocin in LR 10 Units/1,000 ML] 10 unit in 1,000 ml IV TITRATE 12/28/17 17:22 Patient Status [ADT] Routine 12/29/17 15:48 BLOOD GAS ARTERIAL UMBILICAL [BG] Routine BLOOD GAS VENOUS UMBILICAL [BG] Routine - Assessment Assessment:: 22 y/o G1 now P1001 PPD#0 from at 38 0/7 wks - Plan Plan:: / attempted VAVD * Routine cares * Encourage breast feeding * Close monitoring of BP's. * Discharge home in 1-2 days HPI Initial Comments: [facility] LIVE L/D Delivery Note Patient Name: ALFREDO FARIAS Date of : [birth year] Patient Status: Inpatient Attending Provider: Agatha Lee Date: 12/29/17 15:57 Initialization Date: 12/29/17 15:57 L & D Note - General Info Date of Service: 12/29/17 - Delivery Note Labor: Induced by ARM, Induced by Oxytocin Cervical Ripening Method: Balloon Device Delivery Outcome: Livebirth Delivery Method: Spontaneous Vaginal Delivery-Single Delivery Mode: Vacuum Extraction (Failed) Presentation: Left Occiput Anterior (YASMIN) Nuchal Cord: Present Anesthesia Type: Epidural Amniotic Fluid Description: Clear Episiotomy Type: None Laceration: 1st Degree Suture type: Vicryl Suture size: 2-0 Placenta: Intact, Spontaneous Cord: 3 Vessels Estimated Blood Loss: 350 Resuscitation Needed: Yes [place]: Suctioned, Bulb Syringe, Stimulated, Warmed, Doland Used Delivery Comments (Free Text/Narrative):: Patient found to be complete and began pushing. At approximately 2 hours of pushing she became very exhausted and did not feel that she could continue. Was counseled on options and elected for trial of VAVD. Sterile vaginal exam complete/complete/+3 station. head in YASMIN presentation. Maternal pushing effort was good and the pelvis was felt to be adequate for an instrument assisted delivery. Given exhaustion the decision was made to proceed with vacuum assisted vaginal delivery. The mushroom cup was placed without difficulty with care to avoid the vaginal side amin. First application at 2245. After 2 contractions there was one pop off. Vacuum applied again and after 2 contractions there was another pop off. This was at 2252. At this time head resting on perineum continuously seen the labia. Given baby moved down in the pelvis well and tracing otherwise she was encouraged to continue pushing. Delivery did occur at 1529 from an YASMIN presentation. Nuchal cord present, but not reduced. With gentle downward tractions the shoulders and body delivered. Cord clamped and cut. Baby handed to warmer. Section of cord then collected for cord gas. Placenta allowed time to separate and expelled intact. Cord blood then collected from placenta. - Patient Data Vitals - Most Recent: Last Vital Signs Temp 36.8 C 12/28/17 15:12 Pulse 101 H 12/28/17 23:40 Resp 18 12/28/17 23:40 BP 151/93 H 12/28/17 23:40 Pulse Ox 99 12/28/17 23:40 Weight - Most Recent: 77.02 kg Lab Results Last 24 Hours: Laboratory Results - last 24 hr 12/28/17 12/28/17 12/29/17 Range/Units 15:35 15:35 15:48 Cord ABG pH 7.29 (7.22-7.32) Cord ABG pCO2 38.3 L (42-58) Cord ABG pO2 34 H (12-24) Cord ABG HCO3 17.9 L (24-26) Cord ABG Base Excess -7.8 L (-5.5-0.1) Cord VBG pH 7.32 (7.28-7.40) Cord VBG pCO2 34.4 (32.8-38.6) Cord VBG HCO3 17.4 L (19-24) Cord VBG Base Excess -7.3 L (-4.4-0.4) BUN 7 (7-18) mg/dL Creatinine 0.7 (0.55-1.02) mg/dL Est Cr Clr Drug Dosing 118.01 mL/min Estimated GFR (MDRD) > 60 (>60) mL/min Uric Acid 4.8 (2.6-6.0) mg/dL AST 21 (15-37) U/L ALT 21 (14-59) U/L Lactate Dehydrogenase 90 (81-234) U/L Blood Type B NEGATIVE Gel Antibody Screen Positive Med Orders - Current: Current Medications Diphenhydramine HCl (Benadryl) 25 mg IVPUSH Q6H PRN PRN Reason: pruritis Ephedrine Sulfate (Ephedrine Sulfate) 5 mg IVPUSH ASDIRECTED PRN PRN Reason: Hypotension Fentanyl (Sublimaze) 100 mcg EPIDUR Q3H PRN PRN Reason: Pain Fentanyl/Bupivacaine HCl (Fentanyl/Bupivacaine/Ns 2 Mcg-0.125% 100 Ml) 100 ml EPIDUR ASDIRECTED ANNALISE Last Admin: 12/29/17 08:24 Dose: 100 ml Lactated Ringer's (Ringers, Lactated) 1,000 mls @ 40 mls/hr IV ASDIRECTED ANNALISE Last Admin: 12/29/17 06:57 Dose: 40 mls/hr Oxytocin/Lactated Ringer's (Pitocin In Lr 10 Units/1,000 Ml) 10 unit in 1,000 mls @ 12 mls/hr IV TITRATE ANNALISE; 2 MUNITS/MIN PRN Reason: Protocol Last Titration: 12/29/17 08:25 Dose: 6 munits/min, 36 mls/hr Oxytocin/Lactated Ringer's (Pitocin In Lr 10 Units/1,000 Ml) 10 unit in 1,000 mls @ 500 mls/hr IV .CONTINUOUS ANNALISE Misoprostol (Cytotec) 25 mcg VAG Q4H PRN PRN Reason: cervical ripening Nalbuphine HCl (Nubain) 10 mg IVPUSH Q2H PRN PRN Reason: Pain (moderate 4-6) Ondansetron HCl (Zofran) 4 mg IVPUSH Q4H PRN PRN Reason: Nausea/Vomiting Sodium Chloride (Saline Flush) 10 ml FLUSH ASDIRECTED PRN PRN Reason: Keep Vein Open Discontinued Medications Fentanyl (Sublimaze) Confirm Administered Dose 100 mcg .ROUTE .STK-MED ONE Stop: 12/28/17 23:35 Last Admin: 12/28/17 23:41 Dose: 100 mcg - Problem List & Annotations (1) 38 weeks gestation of SNOMED Code(s): 24074026 Code(s): Z3A.38 - 38 WEEKS GESTATION OF Status: Acute Current Visit: Yes (2) Preeclampsia SNOMED Code(s): 090839618 Code(s): O14.90 - UNSPECIFIED PRE-ECLAMPSIA, UNSPECIFIED TRIMESTER Status: Acute Current Visit: Yes Qualifiers: Trimester: third trimester Qualified Code(s): O14.93 - Unspecified pre- eclampsia, third trimester (3) Status post vacuum-assisted vaginal delivery SNOMED Code(s): 940541878 Code(s): Z87.42 - PERSONAL HISTORY OF OTH DISEASES OF THE FEMALE GENITAL TRACT Status: Acute Current Visit: Yes - Problem List Review Problem List Initiated/Reviewed/Updated: Yes - My Orders Last 24 Hours: My Active Orders 12/28/17 15:12 PIH Panel [OM.PC] Stat Resuscitation Status Routine 12/28/17 15:35 ANTIBODY IDENTIFICATION [BBK] Routine PATIENT RETYPE [BBK] Routine TYPE AND SCREEN [BBK] Routine 12/28/17 16:36 Communication Order [RC] ASDIRECTED Communication Order [RC] ASDIRECTED Communication Order [RC] ASDIRECTED Heart Tones [RC] ASDIRECTED Notify Provider [RC] ASDIRECTED Notify Provider [RC] PRN Peripheral IV Care [RC] . DIRECTED Misoprostol [Cytotec] 25 mcg VAG Q4H PRN Nalbuphine [Nubain] 10 mg IVPUSH Q2H PRN Ondansetron [Zofran] 4 mg IVPUSH Q4H PRN Sodium Chloride 0.9% [Saline Flush] 10 ml FLUSH ASDIRECTED PRN Electronic Heart Tones Ext w TOCO [WOMSER] Routine Electronic Heart Tones Internal [WOMSER] Per Unit Routine Peripheral IV Insertion Adult [OM.PC] Routine 12/28/17 16:45 Lactated Ringers [Ringers, Lactated] 1,000 ml IV ASDIRECTED Oxytocin/Lactated Ringers [Pitocin in LR 10 Units/1,000 ML] 10 unit in 1,000 ml IV .CONTINUOUS Oxytocin/Lactated Ringers [Pitocin in LR 10 Units/1,000 ML] 10 unit in 1,000 ml IV TITRATE 12/28/17 17:22 Patient Status [ADT] Routine 12/29/17 15:48 BLOOD GAS ARTERIAL UMBILICAL [BG] Routine BLOOD GAS VENOUS UMBILICAL [BG] Routine - Assessment Assessment:: 22 y/o G1 now P1001 PPD#0 from at 38 0/7 wks - Plan Plan:: / attempted VAVD * Routine cares * Encourage breast feeding * Close monitoring of BP's. * Discharge home in 1-2 days Brief History: [facility] LIVE . L/D Delivery Note. [facility]: [id number] Date of : Patient Status: Inpatient. Attending Provider: Agatha Leecount Number : [id number]. Date: 12/29/17 15:57Initialization Date: 12/29/17 15:57. L & D Note. - General Info. Date of Service: 12/29/17. - Delivery Note. Labor: Induced by ARM, Induced by Oxytocin. Cervical Ripening Method: Balloon Device. Delivery Outcome: Livebirth. Infant Delivery Method: Spontaneous Vaginal Delivery-Single. Delivery Mode: Vacuum Extraction (Failed). Presentation: Left Occiput Anterior (YASMIN). Nuchal Cord: Present. Anesthesia Type: Epidural. Amniotic Fluid Description: Clear. Episiotomy Type: None. Laceration: 1st Degree. Suture type: Vicryl. Suture size: 2-0. Placenta: Intact, Spontaneous. Cord: 3 Vessels. Estimated Blood Loss: 350. Resuscitation Needed: Yes. : Suctioned, Bulb Syringe, Stimulated, Warmed , Doland Used. Delivery Comments (Free Text/Narrative):: Patient found to be complete and began pushing. At approximately 2 hours of pushing she became very exhausted and did not feel that she could continue. Was counseled on options and elected for trial of VAVD. Sterile vaginal exam complete/complete/+ 3 station. head in YASMIN presentation. Maternal pushing effort was good and the pelvis was felt to be adequate for an instrument assisted delivery. Given exhaustion the decision was made to proceed with vacuum assisted vaginal delivery. The mushroom cup was placed without difficulty with care to avoid the vaginal side amin. First application at 2245. After 2 contractions there was one pop off. Vacuum applied again and after 2 contractions there was another pop off. This was at 2252. At this time head resting on perineum continuously seen the labia. Given baby moved down in the pelvis well and tracing otherwise she was encouraged to continue pushing. Delivery did occur at 1529 from an YASMIN presentation. Nuchal cord present, but not reduced. With gentle downward tractions the shoulders and body delivered. Cord clamped and cut. Baby handed to warmer. Section of cord then collected for cord gas. Placenta allowed time to separate and expelled intact. Cord blood then collected from placenta. - Patient Data. Vitals - Most Recent: Last Vital Signs. Temp 36.8 C 12/28/17 15:12. Pulse 101 H 12/28/17 23:40. Resp 18 12/28/17 23:40. BP 151/93 H 12/28/17 23:40. Pulse Ox 99 05/10 23:40. Weight - Most Recent: 77.02 kg. Lab Results Last 24 Hours: Laboratory Results - last 24 hr. 12/28/1802/04/1803Range/Units. 15:3515: 3515:48. Cord ABG pH 7.29 (7.22-7.32). Cord ABG pCO2 38.3 L (42-58). Cord ABG pO2 34 H (12-24). Cord ABG HCO3 17.9 L (24-26). Cord ABG Base Excess -7.8 L (-5.5-0.1). Cord VBG pH 7.32 (7.28-7.40). Cord VBG pCO2 34.4 (32.8-38.6). Cord VBG HCO3 17.4 L (19-24). Cord VBG Base Excess -7.3 L (-4.4-0.4). BUN 7 (7 -18) mg/dL. Creatinine 0.7 (0.55-1.02) mg/dL. Est Cr Clr Drug Dosing 118.01 mL/min. Estimated GFR (MDRD) > 60 (>60) mL/min. Uric Acid 4.8 (2.6-6.0) mg/ dL. AST 21 (15-37) U/L. ALT 21 (14-59) U/L. Lactate Dehydrogenase 90 (81- 234) U/L. Blood Type B NEGATIVE. Gel Antibody Screen Positive. Med Orders - Current: Current Medications. Diphenhydramine HCl (Benadryl) 25 mg IVPUSH Q6H PRN. PRN Reason: pruritis. Ephedrine Sulfate (Ephedrine Sulfate) 5 mg IVPUSH ASDIRECTED PRN. PRN Reason: Hypotension. Fentanyl (Sublimaze) 100 mcg EPIDUR Q3H PRN. PRN Reason: Pain. Fentanyl/Bupivacaine HCl (Fentanyl/ Bupivacaine/Ns 2 Mcg-0.125% 100 Ml) 100 ml EPIDUR ASDIRECTED ANNALISE. Last Admin: 12/29/17 08:24 Dose: 100 ml. Lactated Ringer's (Ringers, Lactated) 1,000 mls @ 40 mls/hr IV ASDIRECTED ANNALISE. Last Admin: 12/29/17 06:57 Dose: 40 mls/hr. Oxytocin/Lactated Ringer's (Pitocin In Lr 10 Units/1,000 Ml) 10 unit in 1,000 mls @ 12 mls/hr IV TITRATE ANNALISE; 2 MUNITS/MIN. PRN Reason: Protocol. Last Titration: 12/29/17 08:25 Dose: 6 munits/min, 36 mls/hr. Oxytocin/Lactated Ringer's (Pitocin In Lr 10 Units/1,000 Ml) 10 unit in 1,000 mls @ 500 mls/hr IV .CONTINUOUS ANNALISE. Misoprostol (Cytotec) 25 mcg VAG Q4H PRN. PRN Reason: cervical ripening. Nalbuphine HCl (Nubain) 10 mg IVPUSH Q2H PRN. PRN Reason: Pain (moderate 4-6). Ondansetron HCl (Zofran) 4 mg IVPUSH Q4H PRN. PRN Reason : Nausea/Vomiting. Sodium Chloride (Saline Flush) 10 ml FLUSH ASDIRECTED PRN. PRN Reason: Keep Vein Open. Discontinued Medications. Fentanyl (Sublimaze) Confirm Administered Dose 100 mcg .ROUTE .STK-MED ONE. Stop: 12/28/17 23:35. Last Admin: 12/28/17 23:41 Dose: 100 mcg. - Problem List & Annotations. (1) 38 weeks gestation of . SNOMED Code(s): 48443639. Code(s): Z3A.38 - 38 WEEKS GESTATION OF Status: Acute Current Visit: Yes. (2) Preeclampsia. SNOMED Code(s): 646970791. Code(s): O14.90 - UNSPECIFIED PRE- ECLAMPSIA, UNSPECIFIED TRIMESTER Status: Acute Current Visit: Yes. Qualifiers: Trimester: third trimester Qualified Code(s): O14.93 - Unspecified pre-eclampsia, third trimester. (3) Status post vacuum-assisted vaginal delivery. SNOMED Code(s): 116734362. Code(s): Z87.42 - PERSONAL HISTORY OF OTH DISEASES OF THE FEMALE GENITAL TRACT Status: Acute Current Visit: Yes. - Problem List Review. Problem List Initiated/Reviewed/Updated: Yes. - My Orders. Last 24 Hours: My Active Orders. 12/28/17 15:12. PIH Panel [OM.PC] Stat. Resuscitation Status Routine. 12/28/17 15:35. ANTIBODY IDENTIFICATION [BBK] Routine. PATIENT RETYPE [BBK] Routine. TYPE AND SCREEN [ BBK] Routine. 12/28/17 16:36. Communication Order [RC] ASDIRECTED. Communication Order [RC] ASDIRECTED. Communication Order [RC] ASDIRECTED. Heart Tones [RC] ASDIRECTED. Notify Provider [RC] ASDIRECTED. Notify Provider [RC] PRN. Peripheral IV Care [RC] . DIRECTED. Misoprostol [Cytotec ] 25 mcg VAG Q4H PRN. Nalbuphine [Nubain] 10 mg IVPUSH Q2H PRN. Ondansetron [Zofran] 4 mg IVPUSH Q4H PRN. Sodium Chloride 0.9% [Saline Flush ] 10 ml FLUSH ASDIRECTED PRN. Electronic Heart Tones Ext w TOCO [WOMSER ] Routine. Electronic Heart Tones Internal [WOMSER] Per Unit Routine. Peripheral IV Insertion Adult [OM.PC] Routine. 12/28/17 16:45. Lactated Ringers [Ringers, Lactated] 1,000 ml IV ASDIRECTED. Oxytocin/Lactated Ringers [ Pitocin in LR 10 Units/1,000 ML] 10 unit in 1,000 ml IV .CONTINUOUS. Oxytocin/ Lactated Ringers [Pitocin in LR 10 Units/1,000 ML] 10 unit in 1,000 ml IV TITRATE. 12/28/17 17:22. Patient Status [ADT] Routine. 12/29/17 15:48. BLOOD GAS ARTERIAL UMBILICAL [BG] Routine. BLOOD GAS VENOUS UMBILICAL [BG] Routine. - Assessment. Assessment:: 22 y/o G1 now P1001 PPD#0 from at 38 0/7 wks. - Plan. Plan:: / attempted VAVD. Routine cares. Encourage breast feeding. Close monitoring of BP's. Discharge home in 1-2 days - Discharge Data Discharge Date: 12/31/17 Discharge Disposition: Home, Self-Care 01 Condition: Good - Discharge Diagnosis/Problem(s) (1) First degree perineal laceration during delivery SNOMED Code(s): 855381398 ICD Code: O70.0 - FIRST DEGREE PERINEAL LACERATION DURING DELIVERY Status: Acute Current Visit: Yes (2) 38 weeks gestation of SNOMED Code(s): 41878842 ICD Code: Z3A.38 - 38 WEEKS GESTATION OF Status: Acute Current Visit: Yes (3) Preeclampsia SNOMED Code(s): 198040166 ICD Code: O14.90 - UNSPECIFIED PRE-ECLAMPSIA, UNSPECIFIED TRIMESTER Status : Acute Current Visit: Yes Qualifiers: Trimester: third trimester Qualified Code(s): O14.93 - Unspecified pre- eclampsia, third trimester - Patient Summary/Data Complications: None Consults: None Hospital Course: Uneventful - Patient Instructions Diet: Regular Diet as Tolerated Driving: Do Not Drive Showering/Bathing: May Shower (48 hours) Notify Provider of: Fever, Increased Pain, Swelling and Redness, Drainage, Nausea and/or Vomiting - Discharge Plan Home Medications: Home Meds Pnv No.122/Iron/Folic Acid [ Multi Tablet] 1 each PO DAILY 12/28/17 [ History] Referrals: Agatha Lee MD [Primary Care Provider] - (See Dr. Lee next week per her instructions.) - Discharge Summary/Plan Comment DC Time >30 min.: No - Patient Data Vitals - Most Recent: Last Vital Signs Temp 97.9 F 12/31/17 05:21 Pulse 86 12/31/17 05:21 Resp 15 12/31/17 05:21 BP 124/85 12/31/17 05:21 Pulse Ox 97 12/31/17 05:21 Weight - Most Recent: 169 lb 12.8 oz Lab Results - Last 24 hrs: Laboratory Results - last 24 hr 12/29/17 Range/Units 15:48 Cord VBG pO2 39 H (28-32) Med Orders - Current: Current Medications Acetaminophen (Tylenol) 650 mg PO Q4H PRN PRN Reason: mild pain or fever Benzocaine/Menthol (Dermoplast Pain Relief [place]) 0 gm TOP ASDIRECTED PRN PRN Reason: Perineal Comfort Measure Last Admin: 12/29/17 17:11 Dose: 1 can Docusate Sodium (Colace) 100 mg PO BID PRN PRN Reason: Constipation Last Admin: 12/29/17 17:11 Dose: 100 mg Emollient Ointment (Lansinoh Hpa) 0 gm TOP ASDIRECTED PRN PRN Reason: Sore Nipples Last Admin: 12/29/17 17:11 Dose: 1 tube Ibuprofen (Motrin) 600 mg PO Q6H PRN PRN Reason: Mild pain or fever Last Admin: 12/30/17 01:26 Dose: 600 mg Witch Eileen (Tucks) 1 pad TOP ASDIRECTED PRN PRN Reason: Hemorrhoid pain Last Admin: 12/29/17 17:11 Dose: 1 container Discontinued Medications Diphenhydramine HCl (Benadryl) 25 mg IVPUSH Q6H PRN PRN Reason: pruritis Ephedrine Sulfate (Ephedrine Sulfate) 5 mg IVPUSH ASDIRECTED PRN PRN Reason: Hypotension Fentanyl (Sublimaze) 100 mcg EPIDUR Q3H PRN PRN Reason: Pain Fentanyl (Sublimaze) Confirm Administered Dose 100 mcg .ROUTE .STK-MED ONE Stop: 12/28/17 23:35 Last Admin: 12/28/17 23:41 Dose: 100 mcg Fentanyl/Bupivacaine HCl (Fentanyl/Bupivacaine/Ns 2 Mcg-0.125% 100 Ml) 100 ml EPIDUR ASDIRECTED ANNALISE Last Admin: 12/29/17 08:24 Dose: 100 ml Lactated Ringer's (Ringers, Lactated) 1,000 mls @ 40 mls/hr IV ASDIRECTED ANNALISE Last Admin: 12/29/17 06:57 Dose: 40 mls/hr Oxytocin/Lactated Ringer's (Pitocin In Lr 10 Units/1,000 Ml) 10 unit in 1,000 mls @ 12 mls/hr IV TITRATE ANNALISE; 2 MUNITS/MIN PRN Reason: Protocol Last Titration: 12/29/17 15:30 Dose: 999 mls/hr Oxytocin/Lactated Ringer's (Pitocin In Lr 10 Units/1,000 Ml) 10 unit in 1,000 mls @ 500 mls/hr IV .CONTINUOUS ANNALISE Last Admin: 12/29/17 16:05 Dose: 999 mls/hr Misoprostol (Cytotec) 25 mcg VAG Q4H PRN PRN Reason: cervical ripening Nalbuphine HCl (Nubain) 10 mg IVPUSH Q2H PRN PRN Reason: Pain (moderate 4-6) Ondansetron HCl (Zofran) 4 mg IVPUSH Q4H PRN PRN Reason: Nausea/Vomiting Sodium Chloride (Saline Flush) 10 ml FLUSH ASDIRECTED PRN PRN Reason: Keep Vein Open *Q Meaningful Use (DIS) - VTE *Q VTE Criteria *Q: - Stroke *Q Stroke Criteria *Q: - AMI *Q AMI Criteria *Q:
== END 2017-12-31 12:25 | disposition home or self-care (01) | DRG 775 ==
LOC: JD.OBCHECK 15:00 → JD.OB 15:01 → JD.OBCHECK 17:22 → JD.OB 17:22 → OBSVTOIN 12-29 15:29
PROVIDERS: ADMIT Obstetrics & Gynecology; ATTEND Obstetrics & Gynecology
PROC: 10D07Z6 Extraction of Products of Conception, Vacuum, Via Natural or Artificial Opening (ICD-10-PCS; principal; 2017-12-29)
PROC: 10907ZC Drainage of Amniotic Fluid, Therapeutic from Products of Conception, Via Natural or Artificial Opening (ICD-10-PCS; 2017-12-29)
PROC: 3E033VJ Introduction of Other Hormone into Peripheral Vein, Percutaneous Approach (ICD-10-PCS; 2017-12-29)
PROC: 0HQ9XZZ Repair Perineum Skin, External Approach (ICD-10-PCS; 2017-12-29)
PROC: 00HU33Z Insertion of Infusion Device into Spinal Canal, Percutaneous Approach (ICD-10-PCS; 2017-12-29)
PROC: 3E0R3BZ Introduction of Anesthetic Agent into Spinal Canal, Percutaneous Approach (ICD-10-PCS; 2017-12-29)
DX: O14.04 Mild to moderate pre-eclampsia, complicating childbirth (principal); Z3A.38 38 weeks gestation of pregnancy; Z37.0 Single live birth; O69.81X0 Labor and delivery complicated by cord around neck, without compression, not applicable or unspecified; O70.0 First degree perineal laceration during delivery; O75.81 Maternal exhaustion complicating labor and delivery
CPT/HCPCS: 36415; 36600; 51702; 59300; 59409; 82565; 82803; 83615; 84450; 84460; 84520; 84550; 85025; 85461; 86850; 86870; 86900; 86901; A9270-GY; J2590; J2790; J3010; J7120

== ENCOUNTER 2019-11-02 07:06 | Inpatient (IN) | payer OTHER ==
[~2019-11-02 07:06] MED LIST: Bupivacaine 0.25% 10 ML SDV ONE
[2019-11-02] MEDS ORDERED: Nalbuphine 10 MG/ML Syringe IVPUSH PRN (07:36)
[2019-11-02] MEDS ORDERED: Sodium Chloride 0.9% 10 ML Syringe FLUSH PRN (07:36)
[2019-11-02] MEDS ORDERED: Ondansetron 4 MG/2 ML SDV IVPUSH PRN (07:36)
--- NOTE | 2019-11-02 07:39 | PCM.LDHP ---
L&D History of Present Illness - General Date of Service: 11/02/19 Admit Problem/Dx: Patient Status Order with Admit Dx/Problem 11/02/19 07:36 Patient Status [ADT] Routine Admission Diagnosis/Problem Admission Diagnosis/Problem Gestational hypertension Source of Information: Patient History Limitations: Reports: No Limitations - History of Present Illness Introduction:: Patient is a 24 y/o at 37 1/7 wks who presents for IOL for gestational HTN. Doing well today. Having some vision changes, but otherwise no headaches. 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 (Approximate): Psychiatric History: Reports: Anxiety, Depression - Past Surgical History HEENT Surgical History: Reports: Oral Surgery Social & Family History - Family History Family Medical History: Noncontributory - Tobacco Use Smoking Status *Q: Never Smoker - Caffeine Use Caffeine Use: Reports: Coffee Other Caffeine Use: 1 every other day - Alcohol Use Alcohol Use History: No - Recreational Drug Use Recreational Drug Use: No H&P Review of Systems - Review of Systems: Review Of Systems: See Below General: Reports: No Symptoms HEENT: Reports: Visual Changes Pulmonary: Reports: No Symptoms Cardiovascular: Reports: No Symptoms Gastrointestinal: Reports: No Symptoms Genitourinary: Reports: No Symptoms Musculoskeletal: Reports: No Symptoms Psychiatric: Reports: No Symptoms Neurological: Reports: No Symptoms L&D Exam - Exam Exam: See Below - OB Specific Contraction Intensity: Irritability Movement: Active Heart Tones: Present Heart Tones per Min: 135 Heart Rate (FHR) Variability: Moderate (6-25 bmp) Presentation: Vertex - Menchaca Score Menchaca Score Cervix Position: Posterior Menchaca Score Consistency: Medium Menchaca Score Effacement: 31-50% Menchaca Score Dilation: 1-2 cm Menchaca Score 's Station: -2 Menchaca Score Total: 4 - Exam General: Alert, Oriented, Cooperative Lungs: Clear to Auscultation, Normal Respiratory Effort Cardiovascular: Regular Rate, Regular Rhythm GI/Abdominal Exam: Soft, Non-Tender Genitourinary: Normal external exam Extremities: Normal Inspection Skin: Warm, Dry, Intact - Patient Data Result Diagrams: 11/02/19 07:48 - Problem List (1) 37 weeks gestation of SNOMED Code(s): 66085672 ICD Code: Z3A.37 - 37 WEEKS GESTATION OF Status: Acute Current Visit: Yes (2) History of pre-eclampsia SNOMED Code(s): 168317951983916 ICD Code: Z87.59 - PERSONAL HISTORY OF COMP OF PREG, CHLDBRTH AND THE PUERP Status: Acute Current Visit: Yes (3) Gestational hypertension SNOMED Code(s): 640659309 ICD Code: O13.9 - GESTATIONAL HTN W/O SIGNIFICANT PROTEINURIA, UNSP TRIMESTER Status: Acute Current Visit: Yes Qualifiers: Trimester: third trimester Qualified Code(s): O13.3 - Gestational [ -induced] hypertension without significant proteinuria, third trimester Problem List Initiated/Reviewed/Updated: Yes Orders Last 24hrs: Active Orders 24 hr Category Date Time Status Patient Status [ADT] Routine ADT 11/02/19 07:36 Ordered Activity as Tolerated [RC] PFP Care 11/02/19 07:36 Ordered Communication Order [RC] ASDIRECTED Care 11/02/19 07:36 Ordered Communication Order [RC] ASDIRECTED Care 11/02/19 07:36 Ordered Communication Order [RC] ASDIRECTED Care 11/02/19 07:36 Ordered Heart Tones [RC] ASDIRECTED Care 11/02/19 07:37 Ordered Monitoring [RC] INTERMITTENT Care 11/02/19 07:36 Ordered Non Stress Test [RC] PER UNIT ROUTINE Care 11/02/19 07:36 Ordered Notify Provider [RC] ASDIRECTED Care 11/02/19 07:36 Ordered Notify Provider [RC] PRN Care 11/02/19 07:36 Ordered Peripheral IV Care [RC] . DIRECTED Care 11/02/19 07:37 Ordered Up ad Agustina [RC] ASDIRECTED Care 11/02/19 07:37 Ordered Vaginal Exam [RC] ASDIRECTED Care 11/02/19 07:36 Ordered Vital Signs [RC] ASDIRECTED Care 11/02/19 07:36 Ordered Regular Diet [DIET] Diet 11/02/19 Breakfast Ordered ALANINE AMINOTRANSFERASE,ALT [CHEM] Routine Lab 11/02/19 07:36 Ordered ASPARTATE AMNIOTRANSFERASE,AST [CHEM] Routine Lab 11/02/19 07:36 Ordered CBC W/O DIFF,HEMOGRAM [HEME] Routine Lab 11/02/19 07:36 Ordered CREATININE W/GFR [CHEM] Routine Lab 11/02/19 07:36 Ordered PROTEIN/CREATININE RATIO,URINE [URCHEM] Routine Lab 11/02/19 07:36 Ordered RAPID PLASMA REAGIN,RPR [CHEM] Routine Lab 11/02/19 07:36 Ordered TYPE AND SCREEN [BBK] Routine Lab 11/02/19 07:36 Ordered Lactated Ringers [Ringers, Lactated] 1,000 ml Med 11/02/19 07:45 Ordered IV ASDIRECTED Nalbuphine [Nubain] Med 11/02/19 07:36 Ordered 10 mg IVPUSH Q2H PRN Ondansetron [Zofran] Med 11/02/19 07:36 Ordered 4 mg IVPUSH Q4H PRN Oxytocin/Lactated Ringers [Pitocin in LR 10 Units/1,000 Med 11/02/19 07:45 Ordered ML] 10 unit in 1,000 ml IV .CONTINUOUS Oxytocin/Lactated Ringers [Pitocin in LR 10 Units/1,000 Med 11/02/19 07:45 Ordered ML] 10 unit in 1,000 ml IV TITRATE Sodium Chloride 0.9% [Saline Flush] Med 11/02/19 07:36 Ordered 10 ml FLUSH ASDIRECTED PRN Electronic Heart Tones Ext w TOCO [WOMSER] Oth 11/02/19 07:36 Ordered Routine Electronic Heart Tones Internal [WOMSER] Per Unit Oth 11/02/19 07:36 Ordered Routine Peripheral IV Insertion Adult [OM.PC] Routine Oth 11/02/19 07:36 Ordered Assessment/Plan Comment:: 24 y/o at 37 1/7 wks who presents for IOL for gestational HTN * Labs to be done * GBS negative, no need for antibiotics * Pitocin for IOL with AROM when able * Pain management per patient preference * Anticipate
[2019-11-02] MEDS ORDERED: Oxytocin/Lactated Ringers 10 UNIT/1,000 ML BAG IV SCH ×2 (07:45)
[2019-11-02] MEDS: Lactated Ringers 1,000 ML IV SCH ×4 (08:00→11:08)
[2019-11-02] MEDS ORDERED: diphenhydrAMINE 50 MG/ML SDV IVPUSH PRN (09:47)
[2019-11-02] MEDS ORDERED: fentaNYL 100 MCG/2 ML SDV EPIDUR PRN (09:47)
[2019-11-02] MEDS ORDERED: fentaNYL/Bupivacaine/NS 2 MCG-0.125% 250 ML EPIDUR PRN (09:47)
[2019-11-02] MEDS ORDERED: ePHEDrine 50 MG/ML SDV IVPUSH PRN (09:47)
--- NOTE | 2019-11-02 14:41 | PCM.DEL ---
L & D Note - General Info Date of Service: 11/02/19 - Delivery Note Labor: Induced by ARM, Induced by Oxytocin Delivery Outcome: Livebirth Infant Delivery Method: Spontaneous Vaginal Delivery-Single Infant Delivery Mode: Spontaneous Presentation: Right Occiput Anterior (IRON) Nuchal Cord: None Anesthesia Type: Epidural Amniotic Fluid Description: Clear Episiotomy Type: None Laceration: None Placenta: Intact, Spontaneous Cord: 3 Vessels Estimated Blood Loss: 200 [place]: Bulb Syringe, Stimulated, Warmed, [place] Used, Warmer Used Delivery Comments (Free Text/Narrative):: Patient found to be complete and began pushing. With maternal pushing effort head delivered from an IRON presentation. No nuchal cord present. With gentle downward traction the shoulders and body delivered. placed on maternal abdomen. Cord clamped and cut. Cord blood obtained. Placenta allowed time to separate and expelled intact. Inspection of the perineum following delivery showed no lacerations - General Info Date of Service: 11/02/19 - Patient Data Vitals - Most Recent: Last Vital Signs Temp 36.6 C 11/02/19 07:36 Pulse 99 11/02/19 07:36 Resp 18 11/02/19 07:36 BP 123/79 11/02/19 07:36 Pulse Ox 100 11/02/19 07:36 Weight - Most Recent: 75.296 kg I&O - Last 24 Hours: Intake & Output 11/01/19 11/02/19 11/02/19 22:59 06:59 14:59 Intake Total 3000 Balance 3000 - Problem List & Annotations (1) 37 weeks gestation of SNOMED Code(s): 99147520 Code(s): Z3A.37 - 37 WEEKS GESTATION OF Status: Acute Current Visit: Yes (2) History of pre-eclampsia SNOMED Code(s): 646440245276572 Code(s): Z87.59 - PERSONAL HISTORY OF COMP OF PREG, CHLDBRTH AND THE PUERP Status: Acute Current Visit: Yes (3) Gestational hypertension SNOMED Code(s): 087989352 Code(s): O13.9 - GESTATIONAL HTN W/O SIGNIFICANT PROTEINURIA, UNSP TRIMESTER Status: Acute Current Visit: Yes Qualifiers: Trimester: third trimester Qualified Code(s): O13.3 - Gestational [ -induced] hypertension without significant proteinuria, third trimester (4) Vaginal delivery SNOMED Code(s): 271000902 Code(s): O80 - ENCOUNTER FOR FULL-TERM UNCOMPLICATED DELIVERY Status: Acute Current Visit: Yes - Problem List Review Problem List Initiated/Reviewed/Updated: Yes - My Orders Last 24 Hours: My Active Orders 11/02/19 07:36 Patient Status [ADT] Routine Activity as Tolerated [RC] PFP Communication Order [RC] ASDIRECTED Communication Order [RC] ASDIRECTED Communication Order [RC] ASDIRECTED Monitoring [RC] INTERMITTENT Non Stress Test [RC] PER UNIT ROUTINE Notify Provider [RC] ASDIRECTED Notify Provider [RC] PRN Vaginal Exam [RC] ASDIRECTED Vital Signs [RC] 03,09,15,21 Nalbuphine [Nubain] 10 mg IVPUSH Q2H PRN Ondansetron [Zofran] 4 mg IVPUSH Q4H PRN Sodium Chloride 0.9% [Saline Flush] 10 ml FLUSH ASDIRECTED PRN Electronic Heart Tones Ext w TOCO [WOMSER] Routine Electronic Heart Tones Internal [WOMSER] Per Unit Routine Peripheral IV Insertion Adult [OM.PC] Routine 11/02/19 07:37 Heart Tones [RC] ASDIRECTED Peripheral IV Care [RC] . DIRECTED Up ad Agustina [RC] ASDIRECTED 11/02/19 07:45 Lactated Ringers [Ringers, Lactated] 1,000 ml IV ASDIRECTED Oxytocin/Lactated Ringers [Pitocin in LR 10 Units/1,000 ML] 10 unit in 1,000 ml IV .CONTINUOUS Oxytocin/Lactated Ringers [Pitocin in LR 10 Units/1,000 ML] 10 unit in 1,000 ml IV TITRATE 11/02/19 07:48 ANTIBODY IDENTIFICATION [BBK] Routine RAPID PLASMA REAGIN,RPR [CHEM] Routine TYPE AND SCREEN [BBK] Routine 11/02/19 Breakfast Regular Diet [DIET] - Assessment Assessment:: 24 y/o G2 now P2002 PPD#0 from at 37 1/7 wks - Plan Plan:: * Routine cares * Going to exclusively pump * Continue to monitor BP's * Discharge home in 2 days
[2019-11-02] MEDS ORDERED: Benzocaine/Menthol 20%-0.5% Spray 56 GM Canister TOP PRN (15:20)
[2019-11-02] MEDS ORDERED: Witch Hazel Medicated Pads 40/Jar TOP PRN (15:20)
[2019-11-02] MEDS ORDERED: Acetaminophen 325 MG Tab PO PRN (15:20)
[2019-11-02] MEDS: Ibuprofen 600 MG Tab PO PRN (16:46)
[2019-11-03] MEDS ORDERED: Docusate Sodium 100 MG Cap PO PRN (05:31)
--- NOTE | 2019-11-03 08:39 | PCM.DCSUM1 ---
Discharge Summary - Hospital Course Free Text/Narrative:: [facility] LIVE L/D Delivery Note Patient Name: ALFREDO FARIAS Date of : 89 Patient Status: Inpatient Attending Provider: Agatha Lee Date: 11/02/19 14:37 Initialization Date: 11/02/19 14:37 L & D Note - General Info Date of Service: 11/02/19 - Delivery Note Labor: Induced by ARM, Induced by Oxytocin Delivery Outcome: Livebirth Delivery Method: Spontaneous Vaginal Delivery-Single Delivery Mode: Spontaneous Presentation: Right Occiput Anterior (IRON) Nuchal Cord: None Anesthesia Type: Epidural Amniotic Fluid Description: Clear Episiotomy Type: None Laceration: None Placenta: Intact, Spontaneous Cord: 3 Vessels Estimated Blood Loss: 200 Garita: Bulb Syringe, Stimulated, Warmed, [place] Used, Warmer Used Delivery Comments (Free Text/Narrative):: Patient found to be complete and began pushing. With maternal pushing effort head delivered from an IRON presentation. No nuchal cord present. With gentle downward traction the shoulders and body delivered. placed on maternal abdomen. Cord clamped and cut. Cord blood obtained. Placenta allowed time to separate and expelled intact. Inspection of the perineum following delivery showed no lacerations - General Info Date of Service: 11/02/19 - Patient Data Vitals - Most Recent: Last Vital Signs Temp 36.6 C 11/02/19 07:36 Pulse 99 11/02/19 07:36 Resp 18 11/02/19 07:36 BP 123/79 11/02/19 07:36 Pulse Ox 100 11/02/19 07:36 Weight - Most Recent: 75.296 kg I&O - Last 24 Hours: Intake & Output 11/01/19 11/02/19 11/02/19 22:59 06:59 14:59 Intake Total 3000 Balance 3000 - Problem List & Annotations (1) 37 weeks gestation of SNOMED Code(s): 90283811 Code(s): Z3A.37 - 37 WEEKS GESTATION OF Status: Acute Current Visit: Yes (2) History of pre-eclampsia SNOMED Code(s): 369931060237417 Code(s): Z87.59 - PERSONAL HISTORY OF COMP OF PREG, CHLDBRTH AND THE PUERP Status: Acute Current Visit: Yes (3) Gestational hypertension SNOMED Code(s): 652186012 Code(s): O13.9 - GESTATIONAL HTN W/O SIGNIFICANT PROTEINURIA, UNSP TRIMESTER Status: Acute Current Visit: Yes Qualifiers: Trimester: third trimester Qualified Code(s): O13.3 - Gestational [ -induced] hypertension without significant proteinuria, third trimester (4) Vaginal delivery SNOMED Code(s): 715315079 Code(s): O80 - ENCOUNTER FOR FULL-TERM UNCOMPLICATED DELIVERY Status: Acute Current Visit: Yes - Problem List Review Problem List Initiated/Reviewed/Updated: Yes - My Orders Last 24 Hours: My Active Orders 11/02/19 07:36 Patient Status [ADT] Routine Activity as Tolerated [RC] PFP Communication Order [RC] ASDIRECTED Communication Order [RC] ASDIRECTED Communication Order [RC] ASDIRECTED Monitoring [RC] INTERMITTENT Non Stress Test [RC] PER UNIT ROUTINE Notify Provider [RC] ASDIRECTED Notify Provider [RC] PRN Vaginal Exam [RC] ASDIRECTED Vital Signs [RC] 03,09,15,21 Nalbuphine [Nubain] 10 mg IVPUSH Q2H PRN Ondansetron [Zofran] 4 mg IVPUSH Q4H PRN Sodium Chloride 0.9% [Saline Flush] 10 ml FLUSH ASDIRECTED PRN Electronic Heart Tones Ext w TOCO [WOMSER] Routine Electronic Heart Tones Internal [WOMSER] Per Unit Routine Peripheral IV Insertion Adult [OM.PC] Routine 11/02/19 07:37 Heart Tones [RC] ASDIRECTED Peripheral IV Care [RC] . DIRECTED Up ad Agustina [RC] ASDIRECTED 11/02/19 07:45 Lactated Ringers [Ringers, Lactated] 1,000 ml IV ASDIRECTED Oxytocin/Lactated Ringers [Pitocin in LR 10 Units/1,000 ML] 10 unit in 1,000 ml IV .CONTINUOUS Oxytocin/Lactated Ringers [Pitocin in LR 10 Units/1,000 ML] 10 unit in 1,000 ml IV TITRATE 11/02/19 07:48 ANTIBODY IDENTIFICATION [BBK] Routine RAPID PLASMA REAGIN,RPR [CHEM] Routine TYPE AND SCREEN [BBK] Routine 11/02/19 Breakfast Regular Diet [DIET] - Assessment Assessment:: 24 y/o G2 now P2002 PPD#0 from at 37 1/7 wks - Plan Plan:: * Routine cares * Going to exclusively pump * Continue to monitor BP's * Discharge home in 2 days HPI Initial Comments: [facility] LIVE L/D Delivery Note Patient Name: ALFREDO FARIAS Date of : 89 Patient Status: Inpatient Attending Provider: Agatha Lee Date: 11/02/19 14:37 Initialization Date: 11/02/19 14:37 L & D Note - General Info Date of Service: 11/02/19 - Delivery Note Labor: Induced by ARM, Induced by Oxytocin Delivery Outcome: Livebirth Delivery Method: Spontaneous Vaginal Delivery-Single Delivery Mode: Spontaneous Presentation: Right Occiput Anterior (IRON) Nuchal Cord: None Anesthesia Type: Epidural Amniotic Fluid Description: Clear Episiotomy Type: None Laceration: None Placenta: Intact, Spontaneous Cord: 3 Vessels Estimated Blood Loss: 200 Garita: Bulb Syringe, Stimulated, Warmed, [place] Used, Warmer Used Delivery Comments (Free Text/Narrative):: Patient found to be complete and began pushing. With maternal pushing effort head delivered from an IRON presentation. No nuchal cord present. With gentle downward traction the shoulders and body delivered. placed on maternal abdomen. Cord clamped and cut. Cord blood obtained. Placenta allowed time to separate and expelled intact. Inspection of the perineum following delivery showed no lacerations - General Info Date of Service: 11/02/19 - Patient Data Vitals - Most Recent: Last Vital Signs Temp 36.6 C 11/02/19 07:36 Pulse 99 11/02/19 07:36 Resp 18 11/02/19 07:36 BP 123/79 11/02/19 07:36 Pulse Ox 100 11/02/19 07:36 Weight - Most Recent: 75.296 kg I&O - Last 24 Hours: Intake & Output 11/01/19 11/02/19 11/02/19 22:59 06:59 14:59 Intake Total 3000 Balance 3000 - Problem List & Annotations (1) 37 weeks gestation of SNOMED Code(s): 59889345 Code(s): Z3A.37 - 37 WEEKS GESTATION OF Status: Acute Current Visit: Yes (2) History of pre-eclampsia SNOMED Code(s): 298491796568132 Code(s): Z87.59 - PERSONAL HISTORY OF COMP OF PREG, CHLDBRTH AND THE PUERP Status: Acute Current Visit: Yes (3) Gestational hypertension SNOMED Code(s): 040157577 Code(s): O13.9 - GESTATIONAL HTN W/O SIGNIFICANT PROTEINURIA, UNSP TRIMESTER Status: Acute Current Visit: Yes Qualifiers: Trimester: third trimester Qualified Code(s): O13.3 - Gestational [ -induced] hypertension without significant proteinuria, third trimester (4) Vaginal delivery SNOMED Code(s): 473415149 Code(s): O80 - ENCOUNTER FOR FULL-TERM UNCOMPLICATED DELIVERY Status: Acute Current Visit: Yes - Problem List Review Problem List Initiated/Reviewed/Updated: Yes - My Orders Last 24 Hours: My Active Orders 11/02/19 07:36 Patient Status [ADT] Routine Activity as Tolerated [RC] PFP Communication Order [RC] ASDIRECTED Communication Order [RC] ASDIRECTED Communication Order [RC] ASDIRECTED Monitoring [RC] INTERMITTENT Non Stress Test [RC] PER UNIT ROUTINE Notify Provider [RC] ASDIRECTED Notify Provider [RC] PRN Vaginal Exam [RC] ASDIRECTED Vital Signs [RC] 03,09,15,21 Nalbuphine [Nubain] 10 mg IVPUSH Q2H PRN Ondansetron [Zofran] 4 mg IVPUSH Q4H PRN Sodium Chloride 0.9% [Saline Flush] 10 ml FLUSH ASDIRECTED PRN Electronic Heart Tones Ext w TOCO [WOMSER] Routine Electronic Heart Tones Internal [WOMSER] Per Unit Routine Peripheral IV Insertion Adult [OM.PC] Routine 11/02/19 07:37 Heart Tones [RC] ASDIRECTED Peripheral IV Care [RC] . DIRECTED Up ad Agustina [RC] ASDIRECTED 11/02/19 07:45 Lactated Ringers [Ringers, Lactated] 1,000 ml IV ASDIRECTED Oxytocin/Lactated Ringers [Pitocin in LR 10 Units/1,000 ML] 10 unit in 1,000 ml IV .CONTINUOUS Oxytocin/Lactated Ringers [Pitocin in LR 10 Units/1,000 ML] 10 unit in 1,000 ml IV TITRATE 11/02/19 07:48 ANTIBODY IDENTIFICATION [BBK] Routine RAPID PLASMA REAGIN,RPR [CHEM] Routine TYPE AND SCREEN [BBK] Routine 11/02/19 Breakfast Regular Diet [DIET] - Assessment Assessment:: 24 y/o G2 now P2002 PPD#0 from at 37 1/7 wks - Plan Plan:: * Routine cares * Going to exclusively pump * Continue to monitor BP's * Discharge home in 2 days Brief History: [facility] LIVE . L/D Delivery Note. Patient Name: ALFREDO FARIAS DEEMedical Record Number: [id number]. Date of : Patient Status: Inpatient. Attending Provider: Agatha Lee CAccount Number : [id number]. Date: 11/02/19 14:37Initialization Date: 11/02/19 14:37. L & D Note. - General Info. Date of Service: 11/02/19. - Delivery Note. Labor: Induced by ARM, Induced by Oxytocin. Delivery Outcome: Livebirth. Delivery Method: Spontaneous Vaginal Delivery-Single. Delivery Mode: Spontaneous. Presentation: Right Occiput Anterior (IRON). Nuchal Cord: None. Anesthesia Type: Epidural. Amniotic Fluid Description: Clear. Episiotomy Type: None. Laceration: None. Placenta: Intact, Spontaneous. Cord : 3 Vessels. Estimated Blood Loss: 200. : Bulb Syringe, Stimulated, Warmed, [place] Used, Warmer Used. Delivery Comments (Free Text/Narrative):: Patient found to be complete and began pushing. With maternal pushing effort head delivered from an IRON presentation. No nuchal cord present. With gentle downward traction the shoulders and body delivered. placed on maternal abdomen. Cord clamped and cut. Cord blood obtained. Placenta allowed time to separate and expelled intact. Inspection of the perineum following delivery showed no lacerations. - General Info. Date of Service: 08/12. - Patient Data. Vitals - Most Recent: Last Vital Signs. Temp 36.6 C 11/02/19 07:36. Pulse 99 11/02/19 07:36. Resp 18 11/02/19 07:36. BP 123/79 11/02/19 07:36. Pulse Ox 100 11/02/19 07:36. Weight - Most Recent: 75.296 kg. I&O - Last 24 Hours: Intake & Output. 11/01/2000/07/2001. 22:5906: 5914:59. Intake [id number]. [id number]. - Problem List & Annotations. (1) 37 weeks gestation of . SNOMED Code(s): 56381458. Code(s): Z3A.37 - 37 WEEKS GESTATION OF Status: Acute Current Visit: Yes. (2) History of pre-eclampsia. SNOMED Code(s): 066608534027735. Code(s): Z87.59 - PERSONAL HISTORY OF COMP OF PREG, CHLDBRTH AND THE PUERP Status: Acute Current Visit: Yes. (3) Gestational hypertension. SNOMED Code(s): 994759866. Code(s): O13.9 - GESTATIONAL HTN W/O SIGNIFICANT PROTEINURIA, UNSP TRIMESTER Status: Acute Current Visit: Yes. Qualifiers: Trimester: third trimester Qualified Code(s): O13.3 - Gestational [-induced] hypertension without significant proteinuria, third trimester. (4) Vaginal delivery. SNOMED Code(s) : 486629854. Code(s): O80 - ENCOUNTER FOR FULL-TERM UNCOMPLICATED DELIVERY Status: Acute Current Visit: Yes. - Problem List Review. Problem List Initiated/Reviewed/Updated: Yes. - My Orders. Last 24 Hours: My Active Orders. 11/02/19 07:36. Patient Status [ADT] Routine. Activity as Tolerated [ RC] PFP. Communication Order [RC] ASDIRECTED. Communication Order [RC] ASDIRECTED. Communication Order [RC] ASDIRECTED. Monitoring [RC] INTERMITTENT. Non Stress Test [RC] PER UNIT ROUTINE. Notify Provider [RC ] ASDIRECTED. Notify Provider [RC] PRN. Vaginal Exam [RC] ASDIRECTED. Vital Signs [RC] 03,09,15,21. Nalbuphine [Nubain] 10 mg IVPUSH Q2H PRN. Ondansetron [Zofran] 4 mg IVPUSH Q4H PRN. Sodium Chloride 0.9% [Saline Flush ] 10 ml FLUSH ASDIRECTED PRN. Electronic Heart Tones Ext w TOCO [WOMSER ] Routine. Electronic Heart Tones Internal [WOMSER] Per Unit Routine. Peripheral IV Insertion Adult [OM.PC] Routine. 11/02/19 07:37. Heart Tones [RC] ASDIRECTED. Peripheral IV Care [RC] . DIRECTED. Up ad Agustina [RC] ASDIRECTED. 11/02/19 07:45. Lactated Ringers [Ringers, Lactated] 1,000 ml IV ASDIRECTED. Oxytocin/Lactated Ringers [Pitocin in LR 10 Units/1,000 ML] 10 unit in 1,000 ml IV .CONTINUOUS. Oxytocin/Lactated Ringers [Pitocin in LR 10 Units/1,000 ML] 10 unit in 1,000 ml IV TITRATE. 11/02/19 07:48. ANTIBODY IDENTIFICATION [BBK] Routine. RAPID PLASMA REAGIN,RPR [CHEM] Routine. TYPE AND SCREEN [BBK] Routine. 11/02/19 Breakfast. Regular Diet [DIET]. - Assessment. Assessment:: 24 y/o G2 now P2002 PPD#0 from at 37 1/7 wks. - Plan. Plan:: Routine cares. Going to exclusively pump. Continue to monitor BP's. Discharge home in 2 days Diagnosis: Stroke: No - Discharge Data Discharge Date: 11/03/19 Discharge Disposition: Home, Self-Care 01 Condition: Good - Referral to Home Health Primary Care Physician: Agatha Lee MD - Discharge Diagnosis/Problem(s) (1) 38 weeks gestation of SNOMED Code(s): 24772077 ICD Code: Z3A.38 - 38 WEEKS GESTATION OF Status: Acute Current Visit: No (2) Preeclampsia SNOMED Code(s): 250823631 ICD Code: O14.90 - UNSPECIFIED PRE-ECLAMPSIA, UNSPECIFIED TRIMESTER Status : Acute Current Visit: No Qualifiers: Trimester: third trimester Qualified Code(s): O14.93 - Unspecified pre- eclampsia, third trimester - Patient Summary/Data Complications: none Consults: none Hospital Course: uneventful - Patient Instructions Diet: Usual Diet as Tolerated Driving: Do Not Drive (x48 hr) Showering/Bathing: May Shower Notify Provider of: Fever, Increased Pain, Swelling and Redness, Drainage, Nausea and/or Vomiting - Discharge Plan *PRESCRIPTION DRUG MONITORING PROGRAM REVIEWED*: Not Applicable *COPY OF PRESCRIPTION DRUG MONITORING REPORT IN PATIENT PAM: Not Applicable Home Medications: Home Meds No122/Iron/Folic Acid [ Multi Tablet] 1 each PO DAILY 12/28/17 [History] Acetaminophen [Tylenol] 650 mg PO Q6H PRN tablet 11/03/19 [Rx] Docusate Sodium [Colace] 100 mg PO BID PRN cap 11/03/19 [Rx] Ibuprofen [Motrin] 600 mg PO Q6H PRN tablet 11/03/19 [Rx] Gabriela Arellano [Tucks] 1 pad TOP ASDIRECTED PRN pad 11/03/19 [Rx] Referrals: Agatha Lee MD [Primary Care Provider] - (3 weeks) - Discharge Summary/Plan Comment DC Time >30 min.: No - Patient Data Vitals - Most Recent: Last Vital Signs Temp 98.2 F 11/03/19 04:15 Pulse 73 11/03/19 04:15 Resp 15 11/03/19 04:15 BP 114/72 11/03/19 04:15 Pulse Ox 98 11/03/19 04:15 Weight - Most Recent: 166 lb I&O - Last 24 hours: Intake & Output 11/02/19 11/03/19 11/03/19 22:59 06:59 14:59 Intake Total 2240 1 Balance 2240 1 Lab Results - Last 24 hrs: Laboratory Results - last 24 hr 11/02/19 11/02/19 11/02/19 Range/Units 07:48 07:48 07:48 WBC (3.98-10.04) K/mm3 RBC (3.98-5.22) M/mm3 Hgb (11.2-15.7) gm/dl Hct (34.1-44.9) % MCV (79.4-94.8) fl MCH (25.6-32.2) pg MCHC (32.2-35.5) g/dl RDW Std Deviation (36.4-46.3) fL Plt Count (182-369) K/mm3 MPV (9.4-12.3) fl Neut % (Auto) (34.0-71.1) % Lymph % (Auto) (19.3-51.7) % Carver % (Auto) (4.7-12.5) % Eos % (Auto) (0.7-5.8) Baso % (Auto) (0.1-1.2) % Neut # (Auto) (1.56-6.13) K/mm3 Lymph # (Auto) (1.18-3.74) K/mm3 Carver # (Auto) (0.24-0.36) K/mm3 Eos # (Auto) (0.04-0.36) K/mm3 Baso # (Auto) (0.01-0.08) K/mm3 Creatinine 0.7 (0.55-1.02) mg/dL Est Cr Clr Drug Dosing TNP Estimated GFR (MDRD) > 60 (>60) mL/min AST 20 (15-37) U/L ALT 26 (14-59) U/L Ur Random Creatinine (30.0-125.0) mg/dL U Random Total Protein (0.0-11.8) mg/dL Protein/Creatinin Ratio (0-149) mg/g RPR Non-reactive (NONREACTIVE) Blood Type B NEGATIVE Gel Antibody Screen Positive Screen RhIG Candidate? Rhogam Indicated 11/02/19 11/02/19 11/03/19 Range/Units 09:11 21:50 05:25 WBC 14.38 H (3.98-10.04) K/mm3 RBC 4.40 (3.98-5.22) M/mm3 Hgb 11.9 (11.2-15.7) gm/dl Hct 36.6 (34.1-44.9) % MCV 83.2 (79.4-94.8) fl MCH 27.0 (25.6-32.2) pg MCHC 32.5 (32.2-35.5) g/dl RDW Std Deviation 43.0 (36.4-46.3) fL Plt Count 220 (182-369) K/mm3 MPV 9.6 (9.4-12.3) fl Neut % (Auto) 70.7 (34.0-71.1) % Lymph % (Auto) 18.8 L (19.3-51.7) % Carver % (Auto) 7.9 (4.7-12.5) % Eos % (Auto) 2.0 (0.7-5.8) Baso % (Auto) 0.3 (0.1-1.2) % Neut # (Auto) 10.16 H (1.56-6.13) K/mm3 Lymph # (Auto) 2.70 (1.18-3.74) K/mm3 Carver # (Auto) 1.14 H (0.24-0.36) K/mm3 Eos # (Auto) 0.29 (0.04-0.36) K/mm3 Baso # (Auto) 0.04 (0.01-0.08) K/mm3 Creatinine (0.55-1.02) mg/dL Est Cr Clr Drug Dosing Estimated GFR (MDRD) (>60) mL/min AST (15-37) U/L ALT (14-59) U/L Ur Random Creatinine 258.1 H (30.0-125.0) mg/dL U Random Total Protein 20.0 H (0.0-11.8) mg/dL Protein/Creatinin Ratio 77.5 (0-149) mg/g RPR (NONREACTIVE) Blood Type Cancelled Gel Antibody Screen Cancelled Screen 2 ros/5 flds - neg RhIG Candidate? Yes Rhogam Indicated Cancelled Med Orders - Current: Current Medications Acetaminophen (Tylenol) 650 mg PO Q4H PRN PRN Reason: mild pain or fever Last Admin: 11/03/19 06:30 Dose: 650 mg Benzocaine/Menthol (Dermoplast Pain Relief [place]) 0 gm TOP ASDIRECTED PRN PRN Reason: Perineal Comfort Measure Last Admin: 11/02/19 16:46 Dose: 1 applic Docusate Sodium (Colace) 100 mg PO BID PRN PRN Reason: Constipation Last Admin: 11/03/19 05:00 Dose: 100 mg Ibuprofen (Motrin) 600 mg PO Q6H PRN PRN Reason: Mild pain or fever Last Admin: 11/02/19 16:46 Dose: 600 mg Witch Eileen (Tucks) 1 pad TOP ASDIRECTED PRN PRN Reason: Perineal Comfort Measure Last Admin: 11/02/19 16:46 Dose: 1 applic Discontinued Medications Diphenhydramine HCl (Benadryl) 25 mg IVPUSH Q6H PRN PRN Reason: pruritis Ephedrine Sulfate (Ephedrine Sulfate) 5 mg IVPUSH ASDIRECTED PRN PRN Reason: Hypotension Fentanyl (Sublimaze) 100 mcg EPIDUR Q3H PRN PRN Reason: Pain Last Admin: 11/02/19 10:23 Dose: 100 mcg Fentanyl/Bupivacaine HCl (Fentanyl/Bupivacaine/Ns 2 Mcg-0.125% 250 Ml) 250 ml EPIDUR CONTINUOUS PRN PRN Reason: Pain Last Admin: 11/02/19 10:23 Dose: 250 ml Lactated Ringer's (Ringers, Lactated) 1,000 mls @ 40 mls/hr IV ASDIRECTED ANNALISE Last Admin: 11/02/19 11:08 Dose: 40 mls/hr Oxytocin/Lactated Ringer's (Pitocin In Lr 10 Units/1,000 Ml) 10 unit in 1,000 mls @ 12 mls/hr IV TITRATE ANNALISE; Protocol Last Titration: 11/02/19 13:40 Dose: 16 munits/min, 96 mls/hr Oxytocin/Lactated Ringer's (Pitocin In Lr 10 Units/1,000 Ml) 10 unit in 1,000 mls @ 500 mls/hr IV .CONTINUOUS ANNALISE Nalbuphine HCl (Nubain) 10 mg IVPUSH Q2H PRN PRN Reason: Pain Ondansetron HCl (Zofran) 4 mg IVPUSH Q4H PRN PRN Reason: Nausea/Vomiting Sodium Chloride (Saline Flush) 10 ml FLUSH ASDIRECTED PRN PRN Reason: Keep Vein Open
[2019-11-03] MEDS: Ibuprofen 600 MG Tab PO PRN (13:38)
--- NOTE | 2019-11-03 17:13 | PCM48HPAN ---
Post Anesthesia Note - EVALUATION WITHIN 48HRS OF ANESTHETIC Vital Signs in Normal Range: Yes Patient Participated in Evaluation: No Respiratory Function Stable: Yes Airway Patent: Yes Cardiovascular Function Stable: Yes Hydration Status Stable: Yes Pain Control Satisfactory: Yes Nausea and Vomiting Control Satisfactory: Yes Mental Status Recovered: Yes Vital Signs: Last Vital Signs Temp 36.4 C 11/03/19 08:07 Pulse 68 11/03/19 08:07 Resp 16 11/03/19 08:07 BP 121/84 11/03/19 08:07 Pulse Ox 98 11/03/19 08:07 - COMMENTS/OBSERVATIONS Free Text/Narrative:: Patient had been discharged at the time of rounds. RN reports that the patient did well and that there were no concerns.
== END 2019-11-03 15:45 | disposition home or self-care (01) | DRG 807 ==
LOC: JD.OB 07:06 → OBSVTOIN 14:23 → JD.OB 14:24
PROVIDERS: ADMIT Obstetrics & Gynecology; ATTEND Obstetrics & Gynecology
PROC: 10E0XZZ Delivery of Products of Conception, External Approach (ICD-10-PCS; principal; 2019-11-02)
PROC: 10907ZC Drainage of Amniotic Fluid, Therapeutic from Products of Conception, Via Natural or Artificial Opening (ICD-10-PCS; 2019-11-02)
PROC: 3E033VJ Introduction of Other Hormone into Peripheral Vein, Percutaneous Approach (ICD-10-PCS; 2019-11-02)
PROC: 3E0S3BZ Introduction of Anesthetic Agent into Epidural Space, Percutaneous Approach (ICD-10-PCS; 2019-11-02)
DX: O13.4 Gestational [pregnancy-induced] hypertension without significant proteinuria, complicating childbirth (principal); Z37.0 Single live birth; Z3A.37 37 weeks gestation of pregnancy; Z79.899 Other long term (current) drug therapy; Z87.59 Personal history of other complications of pregnancy, childbirth and the puerperium
CPT/HCPCS: 01967; 36415; 51702; 59025; 59409; 82565; 82570; 84156; 84450; 84460; 85025; 85027; 85461; 86592; 86850; 86870; 86900; 86901; A9270-GY; J2590; J2790; J3010; J3490; J7120

== ENCOUNTER 2020-08-13 21:14 | Day surgery (SDC) | payer OTHER ==
[2020-08-13] MEDS ORDERED: Ondansetron 4 MG/2 ML SDV IVPUSH ONE (21:56)
[2020-08-13] MEDS ORDERED: Sodium Chloride 0.9% 1,000 ML IV SCH (22:00)
[2020-08-13] MEDS ORDERED: HYDROmorphone 0.5 MG/0.5 ML Syringe IVPUSH ONE (22:41)
--- NOTE | 2020-08-13 22:47 | EDM.PDOC ---
ED HPI GENERAL MEDICAL PROBLEM - General Chief Complaint: Abdominal Pain Stated Complaint: ABDOMINAL PAIN Time Seen by Provider: 08/13/20 22:26 Source of Information: Reports: Patient History Limitations: Reports: No Limitations - History of Present Illness INITIAL COMMENTS - FREE TEXT/NARRATIVE: Mrs. Bal is a very pleasant 25-year-old woman with no chronic medical problems, who now presents the ED with abdominal pain. She states that she lost her appetite yesterday, then developed right lower quadrant abdominal pain radiating into her lower back this morning. She then developed nausea and vomiting around 20:30-cecilia this evening. No urinary symptoms. No prior similar symptoms. The patient did not take any [id number] or home remedies prior to coming to the ED. The patient does not recall when her last menstrual period was, as she has an IUD. The patient states that she last ate around 20:00 last night, 08/12/2020. Here in the ED, the patient's initial BP is found to be mildly elevated at 141/100, otherwise, she is hemodynamically stable, afebrile, saturating 100% on room air. Prior to yesterday, the patient denies having a recent fever, chills, sore throat, ear pain, nasal or sinus congestion, cough, dyspnea, chest pain, palpitations, nausea, vomiting, constipation, diarrhea, abdominal pain, urinary symptoms, recent weight gain or weight loss, recent bloody bowel movements or black bowel movements, recent joint aches, headaches, or rashes. The patient does not have a PCP. 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 Right Lower Abdomen Pain Score (Numeric/FACES): 7 - Related Data Allergies Allergy/AdvReac Type Severity Reaction Status Date / Time No Known Allergies Allergy Verified 08/13/20 21:53 Home Meds: Home Meds . [No Known Home Meds] 08/13/20 [History] Past Medical History LMP (Approximate): Other (See Below) (IUD) - Past Surgical History HEENT Surgical History: Reports: Oral Surgery (dental extractions) Social & Family History - Family History Family Medical History: Noncontributory - Tobacco Use Tobacco Use Status *Q: Never Tobacco User - Caffeine Use Caffeine Use: Reports: Coffee Other Caffeine Use: 1 every other day - Alcohol Use Alcohol Use History: Yes Alcohol Use Frequency: Socially - Recreational Drug Use Recreational Drug Use: No - Living Situation & Occupation Living situation: Reports: , with Spouse, with Family (2 kids) Occupation: Employed ([employer]) ED ROS GENERAL - Review of Systems Review Of Systems: Comprehensive ROS is negative, except as noted in HPI. ED EXAM, GI/ABD - Physical Exam Exam: See Below Exam Limited By: No Limitations General Appearance: Alert, WD/WN, Mild Distress (vomiting at time of evaluation) Eyes: Bilateral: Normal Appearance, EOMI Ears: Normal External Exam, Hearing Grossly Normal Nose: Normal Inspection Throat/Mouth: Normal Inspection, Normal Lips, Normal Voice, No Airway Compromise Head: Atraumatic, Normocephalic Neck: Normal Inspection, Full Range of Motion Respiratory/Chest: No Respiratory Distress, Lungs Clear, Normal Breath Sounds, No Accessory Muscle Use Cardiovascular: Normal Peripheral Pulses, Regular Rate, Rhythm, No Edema, No Gallop, No JVD, No Murmur, No Rub GI/Abdominal Exam: Soft, No Organomegaly, No Distention, No Abnormal Bruit, No Mass, Tender (Right lower quadrant only, with no tenderness elsewhere. Rovsing sign absent. Obturator sign absent. Psoas sign absent. Heel drop sign mildly present.), Abnormal Bowel Sounds (diminished) Back Exam: Normal Inspection, Full Range of Motion. No: CVA Tenderness (L), CVA Tenderness (R) Extremities: Normal Inspection, Normal Range of Motion, No Pedal Edema, Normal Capillary Refill Neurological: Alert, Oriented, CN II-XII Intact, Normal Cognition, No Motor/Sensory Deficits Psychiatric: Normal Affect Skin Exam: Warm, Dry, Intact, Normal Color, No Rash Course - Vital Signs Last Recorded V/S: Last Vital Signs Temp 36.8 C 08/13/20 21:49 Pulse 93 08/13/20 21:49 Resp 18 08/13/20 21:49 BP 141/100 H 08/13/20 21:49 Pulse Ox 100 08/13/20 21:49 - Orders/Labs/Meds Orders: Active Orders 24 hr Category Date Time Status Patient Status [ADT] Routine ADT 08/14/20 00:20 Active Influenza Vaccine Charge [RC] .DISCHARGE Care 08/13/20 22:04 Active Abdomen Pelvis w Cont [CT] Stat Exams 08/13/20 21:56 Taken Sodium Chloride 0.9% [Normal Saline] 1,000 ml Med 08/13/20 22:00 Active IV ASDIRECTED Medication Orders Sodium Chloride (Normal Saline) 1,000 mls @ 999 mls/hr IV ASDIRECTED ANNALISE Last Admin: 08/13/20 22:46 Dose: 999 mls/hr Documented by: ANNIKA Labs: Laboratory Tests 08/13/20 08/13/20 08/13/20 Range/Units 22:14 22:14 22:44 WBC 15.46 H (3.98-10.04) K/mm3 RBC 5.54 H (3.98-5.22) M/mm3 Hgb 15.2 D (11.2-15.7) gm/dl Hct 46.3 H (34.1-44.9) % MCV 83.6 (79.4-94.8) fl MCH 27.4 (25.6-32.2) pg MCHC 32.8 (32.2-35.5) g/dl RDW Std Deviation 40.0 (36.4-46.3) fL Plt Count 296 D (182-369) K/mm3 MPV 9.4 (9.4-12.3) fl Neutrophils % (Manual) 93 H (40-60) % Band Neutrophils % 0 (0-10) % Lymphocytes % (Manual) 5 L (20-40) % Atypical Lymphs % 0 % Monocytes % (Manual) 2 (2-10) % Eosinophils % (Manual) 0 L (0.7-5.8) % Basophils % (Manual) 0 L (0.1-1.2) Platelet Estimate Adequate RBC Morph Comment Normal Sodium (136-145) mEq/L Potassium (3.5-5.1) mEq/L Chloride (98-107) mEq/L Carbon Dioxide (21-32) mEq/L Anion Gap (5-15) BUN (7-18) mg/dL Creatinine (0.55-1.02) mg/dL Est Cr Clr Drug Dosing mL/min Estimated GFR (MDRD) (>60) mL/min BUN/Creatinine Ratio (14-18) Glucose (74-106) mg/dL Calcium (8.5-10.1) mg/dL Total Bilirubin (0.2-1.0) mg/dL AST (15-37) U/L ALT (14-59) U/L Alkaline Phosphatase (46-116) U/L C-Reactive Protein (<1.0) mg/dL Total Protein (6.4-8.2) g/dl Albumin (3.4-5.0) g/dl Globulin gm/dL Albumin/Globulin Ratio (1-2) Urine Color Yellow (Yellow) Urine Appearance Clear (Clear) Urine pH 5.5 (5.0-8.0) Ur Specific [place] > or = 1.030 (1.005-1.030) Urine Protein 2+ H (Negative) Urine Glucose (UA) Negative (Negative) Urine Ketones 3+ H (Negative) Urine Occult Blood Trace-lysed H (Negative) Urine Nitrite Negative (Negative) Urine Bilirubin 1+ H (Negative) Urine Urobilinogen 1.0 (0.2-1.0) Ur Leukocyte Esterase Negative (Negative) Urine RBC 0-5 (0-5) /hpf Urine WBC 0-5 (0-5) /hpf Ur Squamous Epith Cells 5-10 H (0-5) /hpf Urine Bacteria Few (FEW) /hpf Urine Mucus Many H (FEW) /hpf Urine HCG, Qual Negative (NEGATIVE) SARS-CoV-2 RNA (ELIUD) (NEGATIVE) 08/13/20 08/13/20 Range/Units 22:44 23:30 WBC (3.98-10.04) K/mm3 RBC (3.98-5.22) M/mm3 Hgb (11.2-15.7) gm/dl Hct (34.1-44.9) % MCV (79.4-94.8) fl MCH (25.6-32.2) pg MCHC (32.2-35.5) g/dl RDW Std Deviation (36.4-46.3) fL Plt Count (182-369) K/mm3 MPV (9.4-12.3) fl Neutrophils % (Manual) (40-60) % Band Neutrophils % (0-10) % Lymphocytes % (Manual) (20-40) % Atypical Lymphs % % Monocytes % (Manual) (2-10) % Eosinophils % (Manual) (0.7-5.8) % Basophils % (Manual) (0.1-1.2) Platelet Estimate RBC Morph Comment Sodium 139 (136-145) mEq/L Potassium 4.1 (3.5-5.1) mEq/L Chloride 100 (98-107) mEq/L Carbon Dioxide 25 (21-32) mEq/L Anion Gap 18.1 H (5-15) BUN 11 (7-18) mg/dL Creatinine 1.1 H (0.55-1.02) mg/dL Est Cr Clr Drug Dosing 73.19 mL/min Estimated GFR (MDRD) > 60 (>60) mL/min BUN/Creatinine Ratio 10.0 L (14-18) Glucose 133 H (74-106) mg/dL Calcium 9.8 (8.5-10.1) mg/dL Total Bilirubin 0.7 (0.2-1.0) mg/dL AST 17 (15-37) U/L ALT 27 (14-59) U/L Alkaline Phosphatase 77 (46-116) U/L C-Reactive Protein 2.5 H* (<1.0) mg/dL Total Protein 8.3 H (6.4-8.2) g/dl Albumin 4.4 (3.4-5.0) g/dl Globulin 3.9 gm/dL Albumin/Globulin Ratio 1.1 (1-2) Urine Color (Yellow) Urine Appearance (Clear) Urine pH (5.0-8.0) Ur Specific [place] (1.005-1.030) Urine Protein (Negative) Urine Glucose (UA) (Negative) Urine Ketones (Negative) Urine Occult Blood (Negative) Urine Nitrite (Negative) Urine Bilirubin (Negative) Urine Urobilinogen (0.2-1.0) Ur Leukocyte Esterase (Negative) Urine RBC (0-5) /hpf Urine WBC (0-5) /hpf Ur Squamous Epith Cells (0-5) /hpf Urine Bacteria (FEW) /hpf Urine Mucus (FEW) /hpf Urine HCG, Qual (NEGATIVE) SARS-CoV-2 RNA (ELIUD) Negative (NEGATIVE) Meds: Medications Generic Name Dose Route Start Last Admin Trade Name Freq PRN Reason Stop Dose Admin Sodium Chloride 1,000 mls @ 999 mls/hr 08/13/20 22:00 08/13/20 22:46 Normal Saline IV 999 mls/hr ASDIRECTED ANNALISE Administration Discontinued Medications Generic Name Dose Route Start Last Admin Trade Name Freq PRN Reason Stop Dose Admin Hydromorphone HCl 0.5 mg 08/13/20 22:41 08/13/20 22:50 Dilaudid IVPUSH 08/13/20 22:42 0.5 mg ONETIME ONE Administration Influenza Virus Vaccine 1 each 08/13/20 22:04 Pharmacy To Dose - Influenza Vaccine IM 08/13/20 22:05 ONETIME ONE Influenza Virus Vaccine 60 mcg 08/13/20 23:00 Fluzone Quad [id number] Syringe IM 08/13/20 23:01 .ONCE ONE Ondansetron HCl 4 mg 08/13/20 21:56 08/13/20 22:45 Zofran IVPUSH 08/13/20 21:57 4 mg ONETIME ONE Administration - Re-Assessments/Exams Free Text/Narrative Re-Assessment/Exam: 08/13/20 22:42 As above, the patient developed a decreased appetite yesterday, then right lower quadrant abdominal pain this morning, with nausea and vomiting this evening. No fever. On examination, she is tender in McBurney's point, with no tenderness, including no Rovsing sign, elsewhere. Obturator and psoas signs are absent, while her heel drop sign is only mildly positive. The differential includes appendicitis versus a right ovarian cyst, although other etiologies, such as mesenteric adenitis, epiploic appendagitis, or even an unusual presentation of a right sided ureterolith are, of course, possibilities. A work-up, including blood work, a urinalysis, a urine test, and a CT of the abdomen and pelvis with oral and IV contrast have been ordered. In the meantime, the patient will be given IV fluid, IV Dilaudid, and IV Zofran. 08/13/20 23:54 The patient's CBC is remarkable for WBC count elevated at 15.46, but with 0% bandemia. Her Hct is slightly elevated at 46.3, with a Hgb normal at 15.2, and the remainder of her CBC being unremarkable. Her CMP is remarkable for an anion gap mildly elevated at 18.1, but with a bicarbonate normal at 25. Her Cr is slightly elevated at 1.1, with a BUN normal at 11, and her blood glucose is mildly elevated 133, with the remainder of her CMP being unremarkable. Her CRP is slightly elevated at 2.5. Her urinalysis is grossly unremarkable. Her urine test is negative. 08/14/20 00:14 CT of the abdomen and pelvis with oral and IV contrast is read by [facility] as: 1. Acute appendicitis. No definitive evidence of perforation. There is minor free fluid in the pelvic cul-de-sac which may be physiologic in a young female patient. 2. IUD within the uterus. Results of the swab for the SARS-CoV-2 virus are still pending. 08/14/20 00:[address] Le at 00:16. He would like us to call the OR team in now. He will give the patient antibiotics in the OR. 08/14/20 00:20 Test results and the plan to take her to the OR discussed with the patient. She is agreeable. 08/14/20 00:25 The patient's swab for the SARS-CoV-2 virus has returned negative. Departure - Departure Time of Disposition: 00:18 Disposition: DC/Tfer to [facility] Condition: Good Clinical Impression: Acute appendicitis - Discharge Information *PRESCRIPTION DRUG MONITORING PROGRAM REVIEWED*: Not Applicable *COPY OF PRESCRIPTION DRUG MONITORING REPORT IN PATIENT PAM: Not Applicable Referrals: PCP,None [Primary Care Provider] - Agatha Lee MD [Physician] - Forms: ED Department Discharge Sepsis Event Note (ED) - Evaluation Sepsis Screening Result: No Definite Risk - Focused Exam Vital Signs: Vital Signs Temp Pulse Resp BP Pulse Ox 08/13/20 21:49 36.8 C 93 18 141/100 H 100 - My Orders Last 24 Hours: My Active Orders 08/13/20 22:04 Influenza Vaccine Charge [RC] .DISCHARGE 08/14/20 00:20 Patient Status [ADT] Routine - Assessment/Plan Last 24 Hours: My Active Orders 08/13/20 22:04 Influenza Vaccine Charge [RC] .DISCHARGE 08/14/20 00:20 Patient Status [ADT] Routine
[2020-08-13] MEDS ORDERED: FLU VACC QS2020-21(6MOS UP)/PF 60 MCG/0.5 ML SYRINGE IM ONE (23:00)
[2020-08-14] MEDS ORDERED: Lidocaine 1% 4 ML ONE (00:44)
[2020-08-14] MEDS ORDERED: Lactated Ringers 1,000 ML ONE (00:44)
[2020-08-14] MEDS ORDERED: Propofol 200 MG/20 ML SDV ONE (00:44)
[2020-08-14] MEDS ORDERED: Ondansetron 4 MG/2 ML SDV ONE (00:44)
[2020-08-14] MEDS ORDERED: Rocuronium 50 MG/5 ML Vial ONE (00:44)
[2020-08-14] MEDS ORDERED: Midazolam 1 MG/ML 2 ML SDV ONE (00:45)
[2020-08-14] MEDS ORDERED: fentaNYL 250 MCG/5 ML SDV ONE (00:45)
[2020-08-14] MEDS ORDERED: Bupivacaine 0.5%/EPINEPHrine 1:200,000 50 ML MDV ONE (00:45)
[2020-08-14] MEDS ORDERED: Dexamethasone 4 MG/ML 5 ML MDV ONE (00:45)
--- NOTE | 2020-08-14 00:49 | PCM.HP.2 ---
H&P History of Present Illness - General Date of Service: 08/14/20 Admit Problem/Dx: Admission Diagnosis/Problem Admission Diagnosis/Problem Appendicitis Source of Information: Patient History Limitations: Reports: No Limitations - History of Present Illness Initial Comments - Free Text/Narative: Healthy 25 yo woman presents with abdominal pain beginning this morning, got p rogressively worse. Initially around umbilicus then at RLQ. Associated vomiting and anorexia. CT scan shows evidence of acute appendicitis. Right Lower Abdomen Pain Score (Numeric/FACES): 7 - Related Data Allergies/Adverse Reactions: Allergies Allergy/AdvReac Type Severity Reaction Status Date / Time No Known Allergies Allergy Verified 08/13/20 21:53 Home Medications: Home Meds . 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: Psychiatric History: Reports: Anxiety, Depression - Past Surgical History HEENT Surgical History: Reports: Oral Surgery (dental extractions) Social & Family History - Family History Family Medical History: Noncontributory - Tobacco Use Tobacco Use Status *Q: Never Tobacco User - Caffeine Use Caffeine Use: Reports: Coffee Other Caffeine Use: 1 every other day - Recreational Drug Use Recreational Drug Use: No - Living Situation & Occupation Living situation: Reports: , with Spouse, with Family (2 kids) Occupation: Employed ([employer]) H&P Review of Systems - Review of Systems: Review Of Systems: See Below General: Reports: Decreased Appetite HEENT: Reports: No Symptoms Pulmonary: Reports: No Symptoms Cardiovascular: Reports: No Symptoms Gastrointestinal: Reports: Abdominal Pain, Anorexia, Nausea, Vomiting Genitourinary: Reports: No Symptoms Musculoskeletal: Reports: No Symptoms Skin: Reports: No Symptoms Psychiatric: Reports: No Symptoms Neurological: Reports: No Symptoms Hematologic/Lymphatic: Reports: No Symptoms Immunologic: Reports: No Symptoms Exam - Exam Exam: See Below - Vital Signs Vital Signs: Last Vital Signs Temp 36.8 C 08/13/20 21:49 Pulse 93 08/13/20 21:49 Resp 18 08/13/20 21:49 BP 141/100 H 08/13/20 21:49 Pulse Ox 100 08/13/20 21:49 Weight: 61.235 kg - Exam General: Alert, Oriented, Cooperative HEENT: Conjunctiva Clear Neck: Supple Lungs: Clear to Auscultation, Normal Respiratory Effort Cardiovascular: Regular Rate, Regular Rhythm GI/Abdominal Exam: Soft, Tender (Female) Exam: Deferred Rectal (Female) Exam: Deferred Skin: Warm, Dry Neuro Extensive - Mental Status: Alert, Oriented x3 Psychiatric: Normal Mood - Patient Data Lab Results Last 24 hrs: Laboratory Results - last 24 hr 08/13/20 08/13/20 08/13/20 Range/Units 22:14 22:14 22:44 WBC 15.46 H (3.98-10.04) K/mm3 RBC 5.54 H (3.98-5.22) M/mm3 Hgb 15.2 D (11.2-15.7) gm/dl Hct 46.3 H (34.1-44.9) % MCV 83.6 (79.4-94.8) fl MCH 27.4 (25.6-32.2) pg MCHC 32.8 (32.2-35.5) g/dl RDW Std Deviation 40.0 (36.4-46.3) fL Plt Count 296 D (182-369) K/mm3 MPV 9.4 (9.4-12.3) fl Neutrophils % (Manual) 93 H (40-60) % Band Neutrophils % 0 (0-10) % Lymphocytes % (Manual) 5 L (20-40) % Atypical Lymphs % 0 % Monocytes % (Manual) 2 (2-10) % Eosinophils % (Manual) 0 L (0.7-5.8) % Basophils % (Manual) 0 L (0.1-1.2) Platelet Estimate Adequate RBC Morph Comment Normal Sodium (136-145) mEq/L Potassium (3.5-5.1) mEq/L Chloride (98-107) mEq/L Carbon Dioxide (21-32) mEq/L Anion Gap (5-15) BUN (7-18) mg/dL Creatinine (0.55-1.02) mg/dL Est Cr Clr Drug Dosing mL/min Estimated GFR (MDRD) (>60) mL/min BUN/Creatinine Ratio (14-18) Glucose (74-106) mg/dL Calcium (8.5-10.1) mg/dL Total Bilirubin (0.2-1.0) mg/dL AST (15-37) U/L ALT (14-59) U/L Alkaline Phosphatase (46-116) U/L C-Reactive Protein (<1.0) mg/dL Total Protein (6.4-8.2) g/dl Albumin (3.4-5.0) g/dl Globulin gm/dL Albumin/Globulin Ratio (1-2) Urine Color Yellow (Yellow) Urine Appearance Clear (Clear) Urine pH 5.5 (5.0-8.0) Ur Specific [place] > or = 1.030 (1.005-1.030) Urine Protein 2+ H (Negative) Urine Glucose (UA) Negative (Negative) Urine Ketones 3+ H (Negative) Urine Occult Blood Trace-lysed H (Negative) Urine Nitrite Negative (Negative) Urine Bilirubin 1+ H (Negative) Urine Urobilinogen 1.0 (0.2-1.0) Ur Leukocyte Esterase Negative (Negative) Urine RBC 0-5 (0-5) /hpf Urine WBC 0-5 (0-5) /hpf Ur Squamous Epith Cells 5-10 H (0-5) /hpf Urine Bacteria Few (FEW) /hpf Urine Mucus Many H (FEW) /hpf Urine HCG, Qual Negative (NEGATIVE) SARS-CoV-2 RNA (ELIUD) (NEGATIVE) 08/13/20 08/13/20 Range/Units 22:44 23:30 WBC (3.98-10.04) K/mm3 RBC (3.98-5.22) M/mm3 Hgb (11.2-15.7) gm/dl Hct (34.1-44.9) % MCV (79.4-94.8) fl MCH (25.6-32.2) pg MCHC (32.2-35.5) g/dl RDW Std Deviation (36.4-46.3) fL Plt Count (182-369) K/mm3 MPV (9.4-12.3) fl Neutrophils % (Manual) (40-60) % Band Neutrophils % (0-10) % Lymphocytes % (Manual) (20-40) % Atypical Lymphs % % Monocytes % (Manual) (2-10) % Eosinophils % (Manual) (0.7-5.8) % Basophils % (Manual) (0.1-1.2) Platelet Estimate RBC Morph Comment Sodium 139 (136-145) mEq/L Potassium 4.1 (3.5-5.1) mEq/L Chloride 100 (98-107) mEq/L Carbon Dioxide 25 (21-32) mEq/L Anion Gap 18.1 H (5-15) BUN 11 (7-18) mg/dL Creatinine 1.1 H (0.55-1.02) mg/dL Est Cr Clr Drug Dosing 73.19 mL/min Estimated GFR (MDRD) > 60 (>60) mL/min BUN/Creatinine Ratio 10.0 L (14-18) Glucose 133 H (74-106) mg/dL Calcium 9.8 (8.5-10.1) mg/dL Total Bilirubin 0.7 (0.2-1.0) mg/dL AST 17 (15-37) U/L ALT 27 (14-59) U/L Alkaline Phosphatase 77 (46-116) U/L C-Reactive Protein 2.5 H* (<1.0) mg/dL Total Protein 8.3 H (6.4-8.2) g/dl Albumin 4.4 (3.4-5.0) g/dl Globulin 3.9 gm/dL Albumin/Globulin Ratio 1.1 (1-2) Urine Color (Yellow) Urine Appearance (Clear) Urine pH (5.0-8.0) Ur Specific [place] (1.005-1.030) Urine Protein (Negative) Urine Glucose (UA) (Negative) Urine Ketones (Negative) Urine Occult Blood (Negative) Urine Nitrite (Negative) Urine Bilirubin (Negative) Urine Urobilinogen (0.2-1.0) Ur Leukocyte Esterase (Negative) Urine RBC (0-5) /hpf Urine WBC (0-5) /hpf Ur Squamous Epith Cells (0-5) /hpf Urine Bacteria (FEW) /hpf Urine Mucus (FEW) /hpf Urine HCG, Qual (NEGATIVE) SARS-CoV-2 RNA (ELIUD) Negative (NEGATIVE) Result Diagrams: 08/13/20 22:44 08/13/20 22:44 Sepsis Event Note - Evaluation Sepsis Screening Result: No Definite Risk - Focused Exam Vital Signs: Vital Signs Temp Pulse Resp BP Pulse Ox 08/13/20 21:49 36.8 C 93 18 141/100 H 100 Problem List Initiated/Reviewed/Updated: Yes Orders Last 24hrs: Active Orders 24 hr Category Date Time Status Patient Status [ADT] Routine ADT 08/14/20 00:20 Active Influenza Vaccine Charge [RC] .DISCHARGE Care 08/13/20 22:04 Active Abdomen Pelvis w Cont [CT] Stat Exams 08/13/20 21:56 Taken Sodium Chloride 0.9% [Normal Saline] 1,000 ml Med 08/13/20 22:00 Active IV ASDIRECTED Medication Orders Sodium Chloride (Normal Saline) 1,000 mls @ 999 mls/hr IV ASDIRECTED ANNALISE Last Admin: 08/13/20 22:46 Dose: 999 mls/hr Documented by: ANNIKA Assessment/Plan Comment:: Acute appendicitis in patient with no chronic medical conditions or prior abdo violette operations, and no allergies. Plan for laparoscopic appendectomy now with plan to discharge to home from recovery room. - Mortality Measure Prognosis:: Good
[2020-08-14] MEDS ORDERED: Succinylcholine/Sod PF 100 MG/5 ML SYRINGE IV ONE (00:52)
--- NOTE | 2020-08-14 00:52 | PCM.PRNOTE ---
- Free Text/Narrative Note: Operative Report Operation: laparoscopic appendectomy Date: 08/14/2020 Attending Surgeon: Colton Le MD Indication for Surgery: acute appendicitis Preoperative antibiotics: 2 g cefoxitin IV VTE prophylaxis: SCDs Estimated Blood Loss: 10 cc Findings: Veress insertion attempt x 2 at Sloan's point unsuccessful; on successful establishment of pneumoperitoneum and inspection of the LUQ, the falciform had been insufflated. There was a small puncture to the left lateral lobe of the liver that was not full thickness and was hemostatic on inspection. Otherwise uneventful appendectomy for acute appendicitis. Detailed Report: The patient underwent general endotracheal anesthesia after being placed supine on the operating table. Time out was performed, confirming the patients identity and the operation to be performed. The left arm was tucked at the patients side. The abdomen was prepped and draped in sterile fashion. A Veress needle was inserted into the abdominal cavity below the left costal margin along the mid-clavicular line. Pressure readings indicated improper placement, and after two unsuccesful attempts, a 15 mm infraumbilical incision was made and the umbilical stalk grasped and elevated. A small incision with the knife was made through the fascia and the Veress needle was inserted here. The abdomen was insufflated with CO2 to 15 mm Hg. Gas was aspirated below the umbilicus with a syringe in order to ensure safe placement of a 12 mm bladed laparoscopic port. The 5mm 30 degree laparoscope was then inserted and viscera inspected. The falciform appeared to have been insufflated, and there was a small puncture wound at the left edge of the liver which was hemostatic. Two additional 5 mm ports were placed under direct vision with the laparoscope one along the midline superior to the pubic symphysis and one in the left lower quadrant. The laparoscope was then placed through the left lower quadrant port for optimal visualization. The appendix was identified coming off the cecum. It appeared inflamed. Careful blunt dissection was performed with laparoscopic graspers until the appendix was freed from surrounding inflammatory attachments. The distal portion of the appendix was grasped and retracted anteriorly and inferiorly. The [place] Ligasure was used to create a window in the mesoappendix where the appendix was seen coming off the cecum. A 35 mm powered laparoscopic stapler with white cartridge was used to divide the appendix along with a small portion of the base of the cecum. An additional staple load was needed to get completely across the base of the cecum. The mesoappendix was divided using the Ligasure. The specimen was then placed in an Endocatch bag and removed through the umbilical port. The dissection field was irrigated and suctioned. A minor bleeder at the appendiceal staple line was controlled with hook electrocautery. The filed was suctioned and hemostasis was satisfactory. The liver was then again inspected; the injury appeared minor, was not full thickness, and hemostasis was satisfactory. The larger infraumbilical port was closed at the level of the fascia with vicryl suture using the PMI laparoscopic suture passer. Pneumoperitoneum was then released. All skin incisions were then closed with placement of subcuticular vicryl suture and dressed with dermabond. A total of 20 cc 0.5 % marcaine with epinephrine was used for local anesthesia at the incision sites. The patient tolerated the operation well, was extubated in the operating room and transferred to the PACU for routine post-anesthesia care.
[2020-08-14] MEDS ORDERED: fentaNYL 100 MCG/2 ML SDV IVPUSH PRN (01:48)
[2020-08-14] MEDS ORDERED: Ondansetron 4 MG/2 ML SDV IVPUSH PRN (01:48)
[2020-08-14] MEDS ORDERED: HYDROmorphone 0.5 MG/0.5 ML Syringe IVPUSH PRN (01:48)
--- NOTE | 2020-08-14 01:48 | PCM.PREANE ---
Preanesthetic Assessment - Procedure Proposed Procedure: Laparoscopic Appendectomy - Anesthesia/Transfusion/Family Hx Anesthesia History: Prior Anesthesia Without Reaction Transfusion History: No Prior Transfusion(s) - Review of Systems General: Fever, Malaise, Appetite Pulmonary: No Symptoms Cardiovascular: No Symptoms Gastrointestinal: Abdominal Pain, Nausea Neurological: No Symptoms Other: Reports: None - Physical Assessment NPO Status Date: 08/14/20 NPO Status Time: 00:30 Vital Signs: Last Vital Signs Temp 36.8 C 08/13/20 21:49 Pulse 93 08/13/20 21:49 Resp 18 08/13/20 21:49 BP 141/100 H 08/13/20 21:49 Pulse Ox 100 08/13/20 21:49 Height: 1.68 m Weight: 61.235 kg ASA Class: 1E Mental Status: Alert & Oriented x3 Airway Class: Mallampati = 1 Dentition: Reports: Normal Dentition Thyro-Mental Finger Breadths: 3 Mouth Opening Finger Breadths: 3 Lungs: Clear to Auscultation, Normal Respiratory Effort Cardiovascular: Regular Rate, Regular Rhythm - Lab Values: Laboratory Last Values WBC 15.46 K/mm3 (3.98-10.04) H 08/13/20 22:44 RBC 5.54 M/mm3 (3.98-5.22) H 08/13/20 22:44 Hgb 15.2 gm/dl (11.2-15.7) D 08/13/20 22:44 Hct 46.3 % (34.1-44.9) H 08/13/20 22:44 MCV 83.6 fl (79.4-94.8) 08/13/20 22:44 MCH 27.4 pg (25.6-32.2) 08/13/20 22:44 MCHC 32.8 g/dl (32.2-35.5) 08/13/20 22:44 RDW Std Deviation 40.0 fL (36.4-46.3) 08/13/20 22:44 Plt Count 296 K/mm3 (182-369) D 08/13/20 22:44 MPV 9.4 fl (9.4-12.3) 08/13/20 22:44 Neutrophils % (Manual) 93 % (40-60) H 08/13/20 22:44 Band Neutrophils % 0 % (0-10) 08/13/20 22:44 Lymphocytes % (Manual) 5 % (20-40) L 08/13/20 22:44 Atypical Lymphs % 0 % 08/13/20 22:44 Monocytes % (Manual) 2 % (2-10) 08/13/20 22:44 Eosinophils % (Manual) 0 % (0.7-5.8) L 08/13/20 22:44 Basophils % (Manual) 0 (0.1-1.2) L 08/13/20 22:44 Platelet Estimate Adequate 08/13/20 22:44 RBC Morph Comment Normal 08/13/20 22:44 Sodium 139 mEq/L (136-145) 08/13/20 22:44 Potassium 4.1 mEq/L (3.5-5.1) 08/13/20 22:44 Chloride 100 mEq/L (98-107) 08/13/20 22:44 Carbon Dioxide 25 mEq/L (21-32) 08/13/20 22:44 Anion Gap 18.1 (5-15) H 08/13/20 22:44 BUN 11 mg/dL (7-18) 08/13/20 22:44 Creatinine 1.1 mg/dL (0.55-1.02) H 08/13/20 22:44 Est Cr Clr Drug Dosing 73.19 mL/min 08/13/20 22:44 Estimated GFR (MDRD) > 60 mL/min (>60) 08/13/20 22:44 BUN/Creatinine Ratio 10.0 (14-18) L 08/13/20 22:44 Glucose 133 mg/dL (74-106) H 08/13/20 22:44 Calcium 9.8 mg/dL (8.5-10.1) 08/13/20 22:44 Total Bilirubin 0.7 mg/dL (0.2-1.0) 08/13/20 22:44 AST 17 U/L (15-37) 08/13/20 22:44 ALT 27 U/L (14-59) 08/13/20 22:44 Alkaline Phosphatase 77 U/L (46-116) 08/13/20 22:44 C-Reactive Protein 2.5 mg/dL (<1.0) H* 08/13/20 22:44 Total Protein 8.3 g/dl (6.4-8.2) H 08/13/20 22:44 Albumin 4.4 g/dl (3.4-5.0) 08/13/20 22:44 Globulin 3.9 gm/dL 08/13/20 22:44 Albumin/Globulin Ratio 1.1 (1-2) 08/13/20 22:44 Urine Color Yellow (Yellow) 08/13/20 22:14 Urine Appearance Clear (Clear) 08/13/20 22:14 Urine pH 5.5 (5.0-8.0) 08/13/20 22:14 Ur Specific [place] > or = 1.030 (1.005-1.030) 08/13/20 22:14 Urine Protein 2+ (Negative) H 08/13/20 22:14 Urine Glucose (UA) Negative (Negative) 08/13/20 22:14 Urine Ketones 3+ (Negative) H 08/13/20 22:14 Urine Occult Blood Trace-lysed (Negative) H 08/13/20 22:14 Urine Nitrite Negative (Negative) 08/13/20 22:14 Urine Bilirubin 1+ (Negative) H 08/13/20 22:14 Urine Urobilinogen 1.0 (0.2-1.0) 08/13/20 22:14 Ur Leukocyte Esterase Negative (Negative) 08/13/20 22:14 Urine RBC 0-5 /hpf (0-5) 08/13/20 22:14 Urine WBC 0-5 /hpf (0-5) 08/13/20 22:14 Ur Squamous Epith Cells 5-10 /hpf (0-5) H 08/13/20 22:14 Urine Bacteria Few /hpf (FEW) 08/13/20 22:14 Urine Mucus Many /hpf (FEW) H 08/13/20 22:14 Urine HCG, Qual Negative (NEGATIVE) 08/13/20 22:14 SARS-CoV-2 RNA (ELIUD) Negative (NEGATIVE) 08/13/20 23:30 - Allergies Allergies/Adverse Reactions: Allergies Allergy/AdvReac Type Severity Reaction Status Date / Time No Known Allergies Allergy Verified 08/13/20 21:53 - Anesthesia Plan Pre-Op Medication Ordered: Anxiolytic - Acknowledgements Anesthesia Type Planned: General Anesthesia Pt an Appropriate Candidate for the Planned Anesthesia: Yes Alternatives and Risks of Anesthesia Discussed w Pt/Guardian: Yes Pt/Guardian Understands and Agrees with Anesthesia Plan: Yes PreAnesthesia Questionnaire Cardiovascular History: Reports: None Respiratory History: Reports: None 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: Psychiatric History: Reports: Anxiety, Depression - Past Surgical History HEENT Surgical History: Reports: Oral Surgery (dental extractions) - SUBSTANCE USE Tobacco Use Status *Q: Never Tobacco User Recreational Drug Use History: No - HOME MEDS Home Medications: Home Meds oxyCODONE 5 mg PO Q4H PRN #15 tab 08/14/20 [Rx] - CURRENT (IN HOUSE) MEDS Current Meds: Current Medications Sodium Chloride (Normal Saline) 1,000 mls @ 999 mls/hr IV ASDIRECTED ANNALISE Last Admin: 08/13/20 22:46 Dose: 999 mls/hr Documented by: Discontinued Medications Bupivacaine HCl/Epinephrine Bitart (Marcaine 0.5%/Epinephrine 1:200,000) Confirm Administered Dose 50 ml .ROUTE .STK-MED ONE Stop: 08/14/20 00:46 Dexamethasone (Dexamethasone) Confirm Administered Dose 20 mg .ROUTE .STK-MED ON E Stop: 08/14/20 00:46 Fentanyl (Sublimaze) Confirm Administered Dose 250 mcg .ROUTE .STK-MED ONE Stop: 08/14/20 00:46 Hydromorphone HCl (Dilaudid) 0.5 mg IVPUSH ONETIME ONE Stop: 08/13/20 22:42 Last Admin: 08/13/20 22:50 Dose: 0.5 mg Documented by: Lidocaine HCl (Xylocaine-Mpf 1%) Confirm Administered Dose 4 mls @ as directed .ROUTE .STK-MED ONE Stop: 08/14/20 00:45 Lactated Ringer's (Ringers, Lactated) Confirm Administered Dose 1,000 mls @ as directed .ROUTE .STK-MED ONE Stop: 08/14/20 00:45 Cefoxitin Sodium (Mefoxin In Dextrose,Iso-Osm 2 Gm/50 Ml) Confirm Administered Dose 50 mls @ as directed .ROUTE .STK-MED ONE Stop: 08/14/20 00:56 Influenza Virus Vaccine (Pharmacy To Dose - Influenza Vaccine) 1 each IM ONETIME ONE Stop: 08/13/20 22:05 Influenza Virus Vaccine (Fluzone Quad [id number] Syringe) 60 mcg IM .ONCE ONE Stop: 08/13/20 23:01 Last Admin: 08/14/20 01:06 Dose: Not Given Documented by: Midazolam HCl (Versed 1 Mg/Ml) Confirm Administered Dose 2 mg .ROUTE .STK-MED ONE Stop: 08/14/20 00:46 Ondansetron HCl (Zofran) 4 mg IVPUSH ONETIME ONE Stop: 08/13/20 21:57 Last Admin: 08/13/20 22:45 Dose: 4 mg Documented by: Ondansetron HCl (Zofran) Confirm Administered Dose 4 mg .ROUTE .STK-MED ONE Stop: 08/14/20 00:45 Propofol (Diprivan 20 Ml) Confirm Administered Dose 400 mg .ROUTE .STK-MED ONE Stop: 08/14/20 00:45 Rocuronium [place] (Zemuron) Confirm Administered Dose 50 mg .ROUTE .STK-MED ONE Stop: 08/14/20 00:45
[2020-08-14] MEDS ORDERED: Ketorolac 15 MG/ML SDV ONE (02:05)
--- NOTE | 2020-08-14 02:22 | PCM.POSTAN ---
POST ANESTHESIA ASSESSMENT - MENTAL STATUS Mental Status: Oriented, Other (Drowsy) - VITAL SIGNS Vital Signs: Last Vital Signs Temp 36.8 C 08/13/20 21:49 Pulse 93 08/13/20 21:49 Resp 18 08/13/20 21:49 BP 141/100 H 08/13/20 21:49 Pulse Ox 100 08/13/20 21:49 0214 113/63 95 14 100% 98.9F - RESPIRATORY Respiratory Status: Respiratory Rate WNL, Airway Patent, O2 Saturation Stable, Supplemental Oxygen - CARDIOVASCULAR CV Status: Pulse Rate WNL, Blood Pressure Stable - GASTROINTESTINAL GI Status: No Symptoms - PAIN Pain Score: 0 - POST OP HYDRATION Hydration Status: Adequate & Stable
--- NOTE | 2020-08-14 02:39 | PCM48HPAN ---
Post Anesthesia Note - EVALUATION WITHIN 48HRS OF ANESTHETIC Vital Signs in Normal Range: Yes Patient Participated in Evaluation: Yes Respiratory Function Stable: Yes Airway Patent: Yes Cardiovascular Function Stable: Yes Hydration Status Stable: Yes Pain Control Satisfactory: Yes Nausea and Vomiting Control Satisfactory: Yes Mental Status Recovered: Yes Vital Signs: Last Vital Signs Temp 36.7 C 08/14/20 02:30 Pulse 93 08/13/20 21:49 Resp 17 08/14/20 02:30 BP 115/68 08/14/20 02:30 Pulse Ox 100 08/14/20 02:30
--- NOTE | 2020-08-20 16:18 | CT ---
"Addendum created by Tadeo Franklin MD on 08/14/2020 1:14 AM Central Time ([place] & [place]): THIS REPORT CONTAINS FINDINGS THAT MAY BE CRITICAL TO PATIENT CARE. The findings were verbally communicated via telephone conference with MYCHAL MOBLEY at 1:14 AM CDT on 08/14/2020. The findings were acknowledged and understood. Initial Report created on 08/14/2020 1:11 AM Central Time ([place] & [place]): PROCEDURE INFORMATION: Exam: CT Abdomen And Pelvis With Contrast Exam date and time: 08/13/2020 11:34 PM Age: 25 years old Clinical indication: Abdominal pain; Localized; Right lower quadrant (rlq) TECHNIQUE: Imaging protocol: Computed tomography of the abdomen and pelvis with intravenous contrast. Radiation optimization: All CT scans at this facility use at least one of these dose optimization techniques: automated exposure control; mA and/or kV adjustment per patient size (includes targeted exams where dose is matched to clinical indication); or iterative reconstruction. Contrast material: ISOVIEW 300; Contrast volume: 100 ml; Contrast route: INTRAVENOUS (IV); Other contrast: Oral; COMPARISON: No relevant prior studies available. FINDINGS: Liver: Normal. No mass. Gallbladder and bile ducts: Normal. No calcified stones. No ductal dilation. Pancreas: Normal. No ductal dilation. Spleen: Normal. No splenomegaly. Adrenals: Normal. No mass. Kidneys and ureters: Normal. No hydronephrosis. Stomach and bowel: Unremarkable. No obstruction. No mucosal thickening. ALFREDO FARIAS | Final Radiology Report CONFIDENTIALITY STATEMENT This report is intended only for use by the referring physician, and only in accordance with law. If you received this in error, call [phone]. Page 2 of 2 Appendix: Acute appendicitis. The appendix is elongated and fluid-filled. The appendix is dilated at 9 mm. There is a calculus at the base of the appendix. The appendix is best visualized on axial series 2, image 58 extending along the right aspect of the pelvis. Intraperitoneal space: Minor free fluid in the pelvic cul-de-sac. Vasculature: Unremarkable. No abdominal aortic aneurysm. Lymph nodes: Unremarkable. No enlarged lymph nodes. Urinary bladder: Unremarkable as visualized. Reproductive: IUD within the uterus. Bones/joints: Unremarkable. No acute fracture. Soft tissues: Unremarkable. IMPRESSION: 1. Acute appendicitis. No definitive evidence of perforation. There is minor free fluid in the pelvic culde- sac which may be physiologic in a young female patient. 2. IUD within the uterus. Thank you for allowing us to participate in the care of your patient. Dictated and Authenticated by: Tadeo Franklin MD 08/14/2020 1:11 AM Central Time ([place] & [place]) MTDD"
== END 2020-08-14 03:18 | disposition home or self-care (01) ==
LOC: JD.ED 21:14 → JD.SDS 08-14 00:20
PROVIDERS: ATTEND Surgery
DX: K35.80 Unspecified acute appendicitis (principal); F41.9 Anxiety disorder, unspecified; F32.9 Major depressive disorder, single episode, unspecified; Z79.899 Other long term (current) drug therapy; Z01.812 Encounter for preprocedural laboratory examination; Z20.828 Contact with and (suspected) exposure to other viral communicable diseases
CPT/HCPCS: 36415; 44970; 74177; 80053; 81001; 81025; 85007; 85027; 86140; 87635; 96374; 96375; 99284; J0330; J0694; J1100; J1170; J1885; J2001; J2250; J2405; J2704; J2710; J3010; J3490; J7030; J7120; 00840; 99285; U0002

== ENCOUNTER 2023-04-19 19:03 | Emergency (ER) | payer OTHER ==
[2023-04-19] MEDS ORDERED: Famotidine 20 MG Tab PO STA (19:37)
== END 2023-04-19 20:08 | disposition home or self-care (01) ==
LOC: JD.ED 19:03
DX: K21.9 Gastro-esophageal reflux disease without esophagitis (principal); J45.909 Unspecified asthma, uncomplicated
CPT/HCPCS: 99283; A9270